=== PATIENT | male | born 1955 | race Caucasian/White ===

== ENCOUNTER 2020-02-17 11:05 | Outpatient (CLI) | payer MEDICARE, OTHER, SELFPAY ==
--- NOTE | ~2020-02-17 | US_ITS ---
EXAMINATION: US retroperitoneal comp DATE: 02/17/2020 11:44 INDICATION: Gross hematuria TECHNIQUE: Multiple grayscale and Doppler ultrasound images of the kidneys were obtained. COMPARISON: None. FINDINGS: The right kidney measures 11.0 x 5.0 x 6.9 cm. The left kidney measures 13.2 x 5.9 x 5.3 cm . There is a 3.8 cm mass of the left mid kidney. The kidneys demonstrate normal parenchymal echogenic ity. There is no hydronephrosis. The bladder is normal. IMPRESSION: 1. Left kidney mass concerning for renal cell carcinoma. Further evaluation by CT or MRI without and with contrast is recommended. Reviewed, dictated and finalized at location B.
[2020-02-17 11:24] LABS: Basophils Absolute Auto 0.02 K/mm3 (0.00-0.10); Basophils Percent Auto 0.3 % (0.0-1.0); Eosinophils Percent Auto 1.3 % (1.0-6.0); Hematocrit 34.5 % (37.0-46.0); Hemoglobin 12.2 g/dL (12.4-15.3); Immature Granulocyte Absolute 0.05 K/mm3 (0.00-0.00); Immature Granulocyte Percent A 0.6 % (0.0-0.0); Lymphocytes Absolute Auto 1.44 K/mm3 (1.10-4.50); Lymphocytes Percent Auto 18.5 % (18.0-42.0); Mean Corpuscular HGB Conc 35.4 g/dL (32.0-36.0); Mean Corpuscular Hemoglobin 31.6 pg (27.0-31.0); Mean Corpuscular Volume 89.4 fL (78.0-102.0); Mean Platelet Volume 8.4 fl (8.7-11.0); Monocytes Absolute Auto 0.82 K/mm3 (0.10-0.90); Monocytes Percent Auto 10.5 % (2.0-11.0); Neutrophils Absolute Auto 5.4 K/mm3 (1.7-7.2); Neutrophils Percent Auto 68.8 % (50.0-70.0); Platelet Count Result 262 K/mm3 (150-420); Red Blood Count 3.86 M/mm3 (4.70-6.10); Red Cell Distribution Width 12.6 % (11.6-14.4); White Blood Count 7.8 K/mm3 (4.8-10.8)
[2020-02-17 11:37] LABS: Partial Thromboplastin Time 30.1 SEC (22.3-31.6)
[2020-02-17 11:39] LABS: Alanine Aminotransferase 25 U/L (16-63); Alkaline Phosphatase 49 U/L (46-116); Aspartate Amino Transferase 23 U/L (15-37); Bilirubin,Total 0.5 mg/dL (0.00-1.00); Blood Urea Nitrogen 10 mg/dL (7-18); Calcium 8.5 mg/dL (8.5-10.1); Carbon Dioxide 27 mmol/L (21-32); Estimated Glomerular Filt Rate > 60; Glucose 99 mg/dL (70-99); Total Protein 7.1 g/dL (6.4-8.2)
[2020-02-17 11:49] LABS: Anion Gap 12.3 mmol/L (7-16); Chloride 83 mmol/L (98-108); Osmolality Calculated 245 mOsm/kg (285-295); Potassium 4.3 mmol/L (3.5-5.1)
[2020-02-17 11:55] LABS: Sodium 118 mmol/L (136-145)
[2020-02-17 12:06] LABS: Add Urine Microscopic? YES; Appearance Urine Turbid (Clear); Bilirubin Urine 1+ (Negative); Blood Urine 3+ (Negative); Color Urine Red (Yellow); Glucose Urine UA Trace (Negative); Ketones Urine 1+ (Negative); Leukocyte Esterase Ur 2+ (Negative); Nitrate Urine Positive (Negative); Protein Urine 3+ (Negative); pH Urine 7.5 (5.0-8.0)
[2020-02-17 12:11] LABS: RBC Urine >75 /hpf (0-2)
[2020-02-17 12:12] LABS: Bacteria Urine Trace /hpf
[2020-02-17 12:21] LABS: Creatinine Urine 38.88 mg/dL (40-278)
[2020-02-17 14:45] LABS: MALB Creatinine Ratio 1027.4 mg/g (0-30)
[2020-02-17 14:46] LABS: Microalbumin Urine Random > 400.0 mg/L; Total Protein Urine Random > 250.0 mg/dL (0.0-11.9)
[2020-02-17 18:25] LABS: Ethanol < 3 mg/dL (0-6)
== END 2020-02-17 11:06 | disposition home or self-care (01) ==
PROVIDERS: PCP Family Medicine; Visit Provider Family Medicine
DX: R31.0 Gross hematuria (principal); I10 Essential (primary) hypertension; E87.1 Hypo-osmolality and hyponatremia; F10.20 Alcohol dependence, uncomplicated
CPT/HCPCS: 36415; 76770; 80053; 80307; 81001; 81050; 82043; 84156; 85025; 85610; 85730; 87086; 88112

== ENCOUNTER 2020-02-18 08:25 | Outpatient (CLI) | payer MEDICARE, SELFPAY ==
[2020-02-18 08:47] LABS: Blood Urea Nitrogen 10 mg/dL (7-18); Calcium 8.7 mg/dL (8.5-10.1); Carbon Dioxide 26 mmol/L (21-32); Estimated Glomerular Filt Rate 60; Glucose 99 mg/dL (70-99)
[2020-02-18 08:52] LABS: Chloride 78 mmol/L (98-108); Osmolality Calculated 237 mOsm/kg (285-295)
[2020-02-18 08:54] LABS: Sodium 114 mmol/L (136-145)
== END 2020-02-18 08:26 | disposition home or self-care (01) ==
LOC: CHSLAB 08:26
PROVIDERS: PCP Family Medicine; Visit Provider Family Medicine
DX: E87.1 Hypo-osmolality and hyponatremia (principal)
CPT/HCPCS: 36415; 80048

== ENCOUNTER 2020-02-18 11:09 | Inpatient (IN) | payer MEDICARE, OTHER, SELFPAY ==
--- NOTE | ~2020-02-18 | CT_ITS ---
EXAMINATION: CT abdomen pelvis wo/w con DATE: 02/18/2020 13:39 INDICATION: Left kidney mass on ultrasound TECHNIQUE: Computed tomography (CT) of the abdomen was performed without intravenous contrast. CT of the abdomen and pelvis was then performed with a total of 100 mL Omnipaque 350 intravenous contrast. The dose-length product (DLP) was 986.43 mGy-cm. Automated exposure control and iterative reconstruct ion technique were employed. COMPARISON: None FINDINGS: Minimal dependent atelectasis is present in the lung bases. The heart size is normal. A sma ll sliding hiatal hernia is noted. The liver, gallbladder, adrenal glands are normal. Scattered calci fications throughout the pancreas pancreatitis. There is a 6 mm nonobstructing stone of the right kid loren lower pole. There is an approximately 4.3 x 3.1 cm enhancing mass of the left mid kidney. The jorge al vein appears normal. There is irregular crescentic thickening of the left bladder wall which invol ves the left ureterovesicular junction causes moderate left hydroureteronephrosis. There is calcified atherosclerosis of the aorta and many of the other arteries. No pathologically enlarged abdominal or pelvic lymph nodes are identified. There is no free intraperitoneal gas or evidence of bowel obstruc tion. The appendix is normal. IMPRESSION: 1. 4.3 cm left kidney mass consistent with renal cell carcinoma. 2. Asymmetric wall thickening of the bladder which causes moderate left hydroureteronephrosis possibl y reflect urothelial carcinoma. Urologic consultation is recommended. 3. Findings consistent with chronic pancreatitis. Reviewed, dictated and finalized at location B. IMPRESSION: 1. 4.3 cm left kidney mass consistent with renal cell carcinoma. 2. Asymmetric wall thickening of the bladder which causes moderate left hydrour eteronephrosis possibly reflect urothelial carcinoma. Urologic consultation is recommended. 3. Findings consistent with chronic pancreatitis.
--- NOTE | ~2020-02-18 | XR_ITS ---
EXAMINATION: XR chest 2V DATE: 02/18/2020 13:45 INDICATION: Cough and renal mass TECHNIQUE: Frontal and lateral views of the chest are obtained COMPARISON: None available FINDINGS: There is mild atelectasis of the right lower lobe. There is no pleural effusion or pneumoth orax. The cardiomediastinal silhouette is normal. Changes of anterior fusion procedure are noted in t he cervical spine. There is mild thoracic spondylosis. IMPRESSION: 1. Mild atelectasis of the right lower lobe. Reviewed, dictated and finalized at location B.
--- NOTE | 2020-02-18 11:15 | ADMGEN ---
This patient, Andre Sanchez, was admitted to Medical Room 342-01. Patient/family oriented to hospital policies and general routines including ID bracelet, bed and alarms, visiting hours, pain management, procedures, bathroom and other care routines, personal items, smoking policy, room service/diet, and visiting hours. Valuables list has been completed. Information on how to activate the Rapid Response Team has been discussed. Patient/Family are encouraged to report perceived risks to care and to ask questions if they do not understand what they are told or what they should do.
[2020-02-18 11:38] LABS: Basophils Percent Auto 0.1 % (0.2-1.2); Hematocrit 33.5 % (42.0-52.0); Immature Granulocyte Absolute 0.03 K/mm3 (0.00-0.031); Immature Granulocyte Percent A 0.4 % (0-0.5); Lymphocytes Absolute Auto 0.81 K/mm3 (0.9-3.2); Lymphocytes Percent Auto 11.1 % (18.3-44.2); Mean Corpuscular HGB Conc 35.8 g/dl (32-36); Mean Corpuscular Hemoglobin 31.1 pg (26-34); Mean Corpuscular Volume 86.8 fl (80-100); Mean Platelet Volume 8.7 fl (7.4-10.4); Monocytes Absolute Auto 0.6 K/mm3 (0.1-0.6); Monocytes Percent Auto 8.8 % (2.6-8.5); Neutrophils Absolute Auto 5.8 K/mm3 (1.3-6.7); Neutrophils Percent Auto 79.6 % (45.5-73.1); Platelet Count Result 272 k/mm3 (150-375); Red Blood Count 3.86 M/mm3 (4.6-6.20); Red Cell Distribution Width 12.2 % (11.5-14.5); White Blood Count 7.3 K/mm3 (4.5-10.0)
[2020-02-18 11:57] LABS: Alanine Aminotransferase 19 U/L (4-50); Albumin Level 4.5 g/dL (3.5-5.1); Alkaline Phosphatase 56 U/L (38-126); Aspartate Amino Transferase 35 U/L (17-59); Bilirubin,Total 0.5 mg/dL (0.2-1.3); Blood Urea Nitrogen 11 mg/dL (9-20); Calcium 8.6 mg/dL (8.4-10.2); Carbon Dioxide 23 mmol/L (22-30); Chloride 77 mmol/L (98-107); Estimated Glomerular Filt Rate > 60; Glucose 94 mg/dL (75-110); Potassium 4.2 mmol/L (3.4-5.0); Sodium 113 mmol/L (137-145)
[2020-02-18 12:22] LABS: Thyroid Stimulating Hormone 0.936 uIU/mL (0.465-4.680)
[2020-02-18 12:23] VITALS: BMI 25.7
[2020-02-18 12:50] LABS: Sodium Urine Random 52 meq/L
[2020-02-18] MEDS: SODIUM CHLORIDE 0.9% IV 1,000 ML 100 ML IV CONT ×2 (13:00→22:11)
[2020-02-18 13:02] LABS: Add Urine Microscopic? YES; Appearance Urine Clear (Clear); Bacteria Urine Trace /hpf; Bilirubin Urine Negative (Negative); Blood Urine 3+ (Negative); Color Urine Yellow (Yellow); Glucose Urine UA Negative (Negative); Ketones Urine 1+ mg/dL (Negative); Leukocyte Esterase Ur Negative LEU/UL (NEGATIVE); Nitrate Urine Negative (Negative); Protein Urine 1+ mg/dL (Negative); RBC Urine >75 /hpf (0-2); Specific Grav Ur 1.012 (1.001-1.035); Urobilinogen Urine Negative mg/dL (<2.0)
[2020-02-18 14:00] VITALS: BP 199/73; PULSE 96; RESP 20; TEMP 36.7; O2SAT 96
--- NOTE | 2020-02-18 15:05 | PM.IMHP ---
H&P: HPI History of Present Illness Chief complaint: Hyponatremia Narrative: Date of visit 02/17 1130. Andre Sanchez is a 64 year old hypertensive white male with COPD who Saturday evening started having bright red blood with clots in his urine. He had no dysuria but little difficulty with urination do the clotting. He started forcing copious amounts of water and solids primary care on the . He had no fever chills at that time his sodium was 118. Renal sonogram was ordered and when he returned today for follow-up his sodium had dipped 114 and the sonogram revealed a 3.8 cm lesion left kidney thought to be probable renal cell carcinoma. With the hyponatremia and lesion is admitted for evaluation the same. As stated had been drinking copious amounts of water and does take a thiazide diuretic. Review of Systems Review of Systems: Narrative: Constitutional his weight has been stable, to increase with good appetite no fever no chills Eye no double vision or scotoma Mouth no pharyngitis laryngitis Pulmonary no increased shortness breath wheezing or cough chronic from a COPD and continues to smoke CV no chest pain or palpitation GI no melena or hematochezia, did have some loose stools today. No history of peptic disease as per present illness but no dysuria or hematuria PSA within last year was normal Muscle skeletal no particular joint discomfort other than neck from previous surgery after injury some 2-3 years ago Psych no depression PMFSH Past Medical History Medical History (Updated 02/18/20 @ 15:11 by Kevin Martinez MD) COPD (chronic obstructive pulmonary disease) HTN (hypertension) Surgical History Surgical History (Updated 02/18/20 @ 15:02 by Kevin Martinez MD) S/P cervical spinal fusion Family History Family History (Updated 02/18/20 @ 11:59 by Samantha Abdalla RN) Mother Breast cancer Father Cerebrovascular accident Sibling Esophageal cancer Lung cancer Social History Social History Smoking packs per day: 1.5 Smoking cigarettes per day: 30.0 Years smoked: 40 Smoking pack-years: 60.00 Smoking status: Current some day smoker Tobacco type: cigarettes Second hand tobacco smoke exposure: Yes Alcohol intake: current Drinks per week: 5 Substance use: current Substance use type: marijuana Last use: twice a week marijuana Spiritual care concerns: No Agree to blood products: Yes Meds Home Medications and Allergies Home Medications Medication Instructions Recorded Confirmed Type albuterol sulfate See Rx Instructions .ROUTE .COMPLEX 02/18/20 02/18/20 History ciprofloxacin HCl [Cipro] 250 mg PO BID 02/18/20 02/18/20 History hydrochlorothiazide 25 mg PO DAILY 02/18/20 02/18/20 History lisinopril 40 mg PO DAILY 02/18/20 02/18/20 History triamcinolone acetonide [Triderm] See Rx Instructions .ROUTE .COMPLEX 02/18/20 02/18/20 History Allergies Allergy/AdvReac Type Severity Reaction Status Date / Time No Known Allergies Allergy Verified 02/18/20 13:15 Exam Narrative: Exam Narrative: Blood pressure is 100/70 pulse 72 afebrile Neck supple no adenopathy thyromegaly carotid bruits Pupils equal reactive to light sclera anicteric Mouth dentures which were not removed to because the appears normal Lungs low but prolonged expiratory phase no wheezing or consolidation CV regular rate rhythm no murmurs Abdomen is soft nontender no masses Extremities without edema dorsalis pedis posterior tibial 1 to 2+ Neurological José alert oriented cranial nerves are intact no focal deficits Psych affect appears appropriate very cooperative H&P: Results Labs Labs: Short CBC 02/18/20 Range/Units 11:28 WBC 7.3 (4.5-10.0) K/mm3 Hgb 12.0 L (14.0-18.0) g/dL Hct 33.5 L (42.0-52.0) % Plt Count 272 (150-375) k/mm3 BMP 02/18/20 11:28 Sodium 113 L* Potassium 4.2 Chloride 77 L Carbon Dioxide 23 BUN 11 Creatinine 1.00 Glucose 94 Calcium 8
[2020-02-18 16:00] VITALS: BP 147/63; PULSE 106; RESP 20; TEMP 37.7; O2SAT 97
[2020-02-18] MEDS: TRIAMCINOLONE ACET 0.1% CREAM 15 GM TUBE 1 APPLIC TOPICAL (16:40)
--- NOTE | 2020-02-18 16:51 | WPDURCON ---
Assessment and Plan Assessment and plan (1) Left renal mass: Code(s): N28.89 - Other specified disorders of kidney and ureter Status: Acute Assessment and Plan: Gentleman with a significant smoking history admitted with gross hematuria and hyponatremia. CT scan of the abdomen and pelvis with without contrast revealed a centrally located 4.5 cm heterogeneous enhancing mass in the left kidney. Additionally he has left hydroureteronephrosis to the ureterovesical junction with thickening of his bladder wall. 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 Certainly, he appears to have some type of a neoplasm involving the left. When he is medically fit we will evaluate further with cystoscopy, left ureteroscopy and biopsy. This can be done as an outpatient if he is ready for discharge over the weekend. I had a very nafisa discussion with the patient about the findings on CT and expected course of action, involving likely either left nephrectomy or nephroureterectomy. Urology Consult Note HPI Date Seen: 02/18/20 Requesting Physician: Kevin Martinez MD Primary Care Provider: Ry Ansari MD Consult Narrative Narrative: Andre Sanchez is a 64 year old male without prior significant urological history into 3-4 nights ago. At that time he developed gross painless hematuria that has since been sporadic. This is not been associated with significant abdominal or flank pain, nausea vomiting or irritable voiding. In response to the hematuria and drink a lot and has since been transferred from [facility] and admitted here for management of hyponatremia. During the course of her evaluation here renal ultrasound for showed a possible mass in his left kidney and this has since been confirmed by CT scan of the abdomen and pelvis. Review of Systems Constitutional: Constitutional: Denies chills, Denies fatigue, Denies fever(s) and Denies headache(s) Eyes: Eyes: Denies blurry vision ENT: Denies vertigo, Denies dizziness, Denies headache(s) and Denies sore throat Cardiovascular: Cardiovascular: Denies chest pain, Denies syncope, Denies lightheadedness, Denies palpitations, Denies dyspnea and Denies dyspnea on exertion Respiratory: Respiratory: Denies hemoptysis, Denies dyspnea and Denies dyspnea on exertion Gastrointestinal: Gastrointestinal: Denies melena, Denies bloating, Denies hematochezia, Denies change in bowel habits, Denies change in stool character, Denies constipation, Denies diarrhea and Denies vomiting Genitourinary: Genitourinary: Denies dysuria, Denies testicular pain, Denies urinary frequency, Denies urinary hesitancy and Denies urinary urgency Integumentary/Breasts: Skin/Breast: Denies pruritus, Denies lesions and Denies rash Neurologic: Denies confusion, Denies vertigo, Denies dizziness, Denies syncope and Denies headache(s) Psychiatric: Psychiatric: Denies anxiety, Denies change in appetite and Denies confusion Endocrine: Endocrine: Denies fatigue and Denies palpitations PMFSH Past Medical History Medical History COPD (chronic obstructive pulmonary disease) HTN (hypertension) Surgical History Surgical History S/P cervical spinal fusion Family History Family History Mother Breast cancer Father Cerebrovascular accident Sibling Esophageal cancer Lung cancer Social History Social History Smoking packs per day: 1.5 Smoking cigarettes per day: 30.0 Years smoked: 40 Smoking pack-years: 60.00 Smoking status: Current some day smoker Tobacco type: cigarettes Second hand tobacco smoke exposure: Yes Alcohol intake: current Drinks per week: 5 Substance use: current Subst
[2020-02-18 22:00] VITALS: BP 131/53; PULSE 82; PULSE 87; RESP 16; TEMP 37.1; O2SAT 96
[2020-02-19 05:44] VITALS: BP 136/62; PULSE 87; RESP 14; TEMP 37.2; O2SAT 99
[2020-02-19 05:50] LABS: Blood Urea Nitrogen 12 mg/dL (9-20); Calcium 8.2 mg/dL (8.4-10.2); Carbon Dioxide 26 mmol/L (22-30); Chloride 86 mmol/L (98-107); Estimated CRCL calculation 72 ml/min; Estimated Glomerular Filt Rate > 60; Glucose 96 mg/dL (75-110); Potassium 3.5 mmol/L (3.4-5.0); Sodium 119 mmol/L (137-145)
[2020-02-19 06:08] LABS: Iron 74 ug/dL (49-181)
[2020-02-19 06:17] LABS: Percent Iron Saturation 22 % (20-50)
--- NOTE | 2020-02-19 07:41 | WPDUROPN2 ---
Progress Note: A&P Assessment and Plan (1) Left renal mass: Code(s): N28.89 - Other specified disorders of kidney and ureter Status: Acute Assessment and Plan: Gentleman with a significant smoking history admitted with gross hematuria and hyponatremia. CT scan of the abdomen and pelvis with without contrast revealed a centrally located 4.5 cm heterogeneous enhancing mass in the left kidney. Additionally he has left hydroureteronephrosis to the ureterovesical junction with thickening of his bladder wall. 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 Certainly, he appears to have some type of a neoplasm involving the left. When he is medically fit we will evaluate further with cystoscopy, left ureteroscopy and biopsy. This can be done as an outpatient if he is ready for discharge over the weekend. I had a very nafisa discussion with the patient about the findings on CT and expected course of action, involving likely either left nephrectomy or nephroureterectomy. 02/19/2020 Pt. can be discharged any time, from our standpoint. We will contact to schedule outpatient left ureteroscopy with biopsy. Pt. fully aware of problems and plan - another long discussion this morning. Subjective Subjective Date/Time Seen: 02/19/20 07:41 Comfortable, no complaintes Review of Systems Cardiovascular: Cardiovascular: Denies chest pain, Denies lightheadedness, Denies palpitations and Denies dyspnea Respiratory: Respiratory: Denies dyspnea Gastrointestinal: Gastrointestinal: Denies diarrhea, Denies nausea and Denies vomiting Genitourinary: Genitourinary: Denies hematuria and Denies dysuria Endocrine: Endocrine: Denies palpitations Exam Const: General: no acute distress Resp: Effort & Inspection: normal respiratory effort GI: Inspection: non-distended GI Palp: No abdominal tenderness and No Guarding due to palpation present (GI) Auscultation: normal bowel sounds Objective Data Vital Signs Vital Signs: Vital Signs - 24 hr 02/18/20 14:00 02/18/20 16:00 02/18/20 22:00 Temperature 98.1 F 99.9 F H 98.7 F Pulse Rate 96 106 H 82 Respiratory Rate 20 20 16 Blood Pressure 199/73 H 147/63 H 131/53 L Pulse Oximetry 96 97 96 02/19/20 05:44 Temperature 99.0 F Pulse Rate 87 Respiratory Rate 14 Blood Pressure 136/62 Pulse Oximetry 99 Intake/Output Intake/Output: Intake & Output 02/16/20 02/17/20 02/18/20 02/19/20 23:59 23:59 23:59 23:59 Intake Total 1450 100 Output Total 350 Balance 1450 -250 Meds/Results Medications: Active Medications Generic Name Dose Route Start Last Admin Trade Name Freq PRN Reason Stop Dose Admin Acetaminophen 650 mg 02/18/20 14:58 Tylenol Tablet PO Q6H PRN Mild Pain (1-3) or Fever Albuterol 2 puff 02/18/20 15:41 Proventil Hfa INHALATION Q4HR PRN Shortness Of Breath Sodium Chloride 1,000 mls @ 100 mls/hr 02/18/20 11:10 02/18/20 22:11 Normal Saline Iv IV CONT 100 mls/hr .Q10H CHRISTINE Administration Lisinopril 40 mg 02/19/20 09:00 Prinivil PO QAM CHRISTINE Tiotropium [place] 1 cap 02/18/20 16:05 Spiriva INHALATION QAM CHRISTINE Triamcinolone Acetonide 1 applic 02/18/20 15:55 02/18/20 16:40 Kenalog 0.1% Cream TOPICAL 1 applic DAILY CHRISTINE Administration Radiology Results: ITS Impressions Abdomen/Pelvis CT 02/18/20 13:42 IMPRESSION: 1. 4.3 cm left kidney mass consistent with renal cell carcinoma. 2. Asymmetric wall thickening of the bladder which causes moderate left hydroureteronephrosis possibly reflect urothelial carcinoma. Urologic consultation is recommended. 3. Findings consistent with chronic pancreatitis. Chest X-Ray 02/18/20 14:00 IMPRESSION: 1. Mild atelectasis of the right lower lobe. Labs Labs: Laboratory Results - last 24 hr 02/18/20 02/18/20 02/18/20 11:28 11:28 11:28 WB
[2020-02-19] MEDS: SODIUM CHLORIDE 0.9% IV 1,000 ML 100 ML IV CONT ×2 (08:36→18:29)
[2020-02-19] MEDS: TRIAMCINOLONE ACET 0.1% CREAM 15 GM TUBE 1 APPLIC TOPICAL (08:37)
[2020-02-19] MEDS: POTASSIUM CHLORIDE 20 MEQ TABLET 40 MEQ PO (08:37)
[2020-02-19 08:38] VITALS: RESP 14; O2SAT 99
[2020-02-19] MEDS: lisinopriL 20 MG TABLET 40 MG PO (08:38)
[2020-02-19 14:00] VITALS: BP 140/60; PULSE 68; RESP 14; TEMP 37.1; O2SAT 94
--- NOTE | 2020-02-19 15:00 | PM.IMPN ---
Progress Note: A&P Assessment and Plan (1) Hyponatremia: Code(s): E87.1 - Hypo-osmolality and hyponatremia Status: Acute Assessment and Plan: Probably combination of excess free water and thiazide diuretic good especially with the low chloride and low serum osmolality. Loose stools before admission could be contributing also. Hydrating with saline and holding diuretic and sodium is slowly rising as we prefer at 119. (2) Left renal mass: Code(s): N28.89 - Other specified disorders of kidney and ureter Status: Acute Assessment and Plan: Left renal mass probable renal cell carcinoma on CT scan.. 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 Urology has seen and will plan on cystoscopy at a later date with biopsy and probable definitive nephrectomy later (3) HTN (hypertension): Code(s): I10 - Essential (primary) hypertension Status: Acute Assessment and Plan: Pressure is toward low side initially but has rebounded slightly and have continued GINI-inhibitor continue to hold diuretic with low sodium (4) COPD (chronic obstructive pulmonary disease): Code(s): J44.9 - Chronic obstructive pulmonary disease, unspecified Status: Acute Assessment and Plan: P.r.n. albuterol. And Spiriva (5) DVT prophylaxis: Code(s): Z29.9 - Encounter for prophylactic measures, unspecified Status: Acute Assessment and Plan: With hematuria and renal lesion will use mechanical DVT prophylaxis Subjective Date/time seen: 02/19/20 15:00 Interval history: Date of visit 02/18.. 64-year-old hyper intensive white male admitted with severe hyponatremia with hematuria and a renal mass on sonogram from the outpatient. Feeling better today less lightheadedness and appetite good. 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 Urology has seen and will schedule cystoscopy with biopsy and probable nephrectomy and later date Exam Narrative: Exam Narrative: Blood pressure is 136/62 pulse 70 afebrile Neck supple no adenopathy thyromegaly carotid bruits Pupils equal reactive to light sclera anicteric Lungs clear but prolonged expiratory phase no wheezing or consolidation CV regular rate rhythm no murmurs Abdomen is soft nontender no masses Extremities without edema dorsalis pedis posterior tibial 1 to 2+ Neurological alert oriented cranial nerves are intact no focal deficits Psych affect appears appropriate very cooperative Objective Data Vital Signs Vital Signs: Vital Signs - 24 hr 02/18/20 16:00 02/18/20 22:00 02/19/20 05:44 Temperature 37.7 C H 37.1 C 37.2 C Pulse Rate 106 H 82 87 Respiratory Rate 20 16 14 Blood Pressure 147/63 H 131/53 L 136/62 Pulse Oximetry 97 96 99 02/19/20 08:38 Temperature Pulse Rate Respiratory Rate 14 Blood Pressure Pulse Oximetry 99 Intake/Output Intake/Output: Intake & Output 02/16/20 02/17/20 02/18/20 02/19/20 23:59 23:59 23:59 23:59 Intake Total 1450 2380 Output Total 350 Balance 1450 2030 Meds/Results Medications: Active Medications Generic Name Dose Route Start Last Admin Trade Name Freq PRN Reason Stop Dose Admin Acetaminophen 650 mg 02/18/20 14:58 Tylenol Tablet PO Q6H PRN Mild Pain (1-3) or Fever Albuterol 2 puff 02/18/20 15:41 Proventil Hfa INHALATION Q4HR PRN Shortness Of Breath Sodium Chloride 1,000 mls @ 100 mls/hr 02/18/20 11:10 02/19/20 08:36 Normal Saline Iv IV CONT 100 mls/hr .Q10H CHRISTINE Administration Lisinopril 40 mg 02/19/20 09:00 02/19/20 08:38 Prinivil PO 40 mg QAM CHRISTINE Administration Tiotropium [place] 1 cap 02/18/20 16:05 02/19/20 08:36 Spiriva INHALATION 1 cap QAM CHRISTINE Administration Triamcinolone Acetonide 1 applic 02/18/20 15:55 02/19/20 08:37 Kenalog 0.1% Cream TOPICAL 1 applic DAILY CHRISTINE Administration Radiology Results: ITS Impressions
[2020-02-19 20:32] VITALS: BP 147/54; PULSE 98; RESP 18; TEMP 36.4; O2SAT 99
[2020-02-20 03:32] LABS: Osmolality, Urine 306 mOsm/kg (50-1200)
[2020-02-20] MEDS: SODIUM CHLORIDE 0.9% IV 1,000 ML 100 ML IV CONT (04:37)
[2020-02-20 04:40] VITALS: BP 141/61; PULSE 76; RESP 18; TEMP 36.4; O2SAT 95
[2020-02-20 06:15] LABS: Blood Urea Nitrogen 9 mg/dL (9-20); Calcium 8.5 mg/dL (8.4-10.2); Carbon Dioxide 27 mmol/L (22-30); Chloride 94 mmol/L (98-107); Estimated CRCL calculation 91 ml/min; Estimated Glomerular Filt Rate > 60; Glucose 107 mg/dL (75-110); Sodium 127 mmol/L (137-145)
[2020-02-20] MEDS: ACETAMINOPHEN 325 MG TABLET 650 MG PO (07:01)
[2020-02-20] MEDS: lisinopriL 20 MG TABLET 40 MG PO (08:24)
[2020-02-20] MEDS: TRIAMCINOLONE ACET 0.1% CREAM 15 GM TUBE 1 APPLIC TOPICAL (08:24)
[2020-02-20 13:34] LABS: Blood Urea Nitrogen 11 mg/dL (9-20); Calcium 7.9 mg/dL (8.4-10.2); Carbon Dioxide 27 mmol/L (22-30); Chloride 91 mmol/L (98-107); Estimated CRCL calculation 80 ml/min; Estimated Glomerular Filt Rate > 60; Glucose 107 mg/dL (75-110); Potassium 3.9 mmol/L (3.4-5.0); Sodium 126 mmol/L (137-145)
[2020-02-20 14:00] VITALS: BP 137/81; PULSE 72; RESP 18; TEMP 36.8; O2SAT 97
--- NOTE | 2020-02-20 15:13 | PM.IMPN ---
Progress Note: A&P Assessment and Plan (1) Hyponatremia: Code(s): E87.1 - Hypo-osmolality and hyponatremia Status: Acute Assessment and Plan: combination of excess free water and thiazide diuretic especially with the low chloride and low serum osmolality. Loose stools before admission could be contributing also. Hydrating with saline and holding diuretic and sodium up to 127 today , a rise of 8 in 24 hours acceptable will stop IV saline and watch 1 more day . (2) Left renal mass: Code(s): N28.89 - Other specified disorders of kidney and ureter Status: Acute Assessment and Plan: Left renal mass probable renal cell carcinoma on CT scan.. 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 Urology has seen and will plan on cystoscopy at a later date with biopsy and probable definitive nephrectomy later (3) HTN (hypertension): Code(s): I10 - Essential (primary) hypertension Status: Acute Assessment and Plan: Pressure is toward low side initially but has rebounded slightly and have continued GINI-inhibitor continue to hold diuretic with low sodium (4) COPD (chronic obstructive pulmonary disease): Code(s): J44.9 - Chronic obstructive pulmonary disease, unspecified Status: Acute Assessment and Plan: P.r.n. albuterol. with scheduled Spiriva (5) DVT prophylaxis: Code(s): Z29.9 - Encounter for prophylactic measures, unspecified Status: Acute Assessment and Plan: With hematuria and renal lesion will use mechanical DVT prophylaxis Subjective Date/time seen: 02/20/20 15:13 Interval history: Date of visit 02/19.. 64-year-old hypertensive white male admitted with severe hyponatremia with hematuria and a renal mass on sonogram from the outpatient. Feeling better each day less lightheadedness and appetite good. 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 Urology has seen and will schedule cystoscopy with biopsy and probable nephrectomy and later date Exam Narrative: Exam Narrative: Blood pressure is 136/80 pulse 72 afebrile Neck supple no adenopathy thyromegaly carotid bruits Pupils equal reactive to light sclera anicteric Lungs clear but prolonged expiratory phase no wheezing or consolidation CV regular rate rhythm no murmurs Abdomen is soft nontender no masses Extremities without edema dorsalis pedis posterior tibial 1 to 2+ Neurological alert oriented cranial nerves are intact no focal deficits Objective Data Vital Signs Vital Signs: Vital Signs - 24 hr 02/19/20 20:32 02/20/20 04:40 02/20/20 14:00 Temperature 36.4 C 36.4 C L 36.8 C Pulse Rate 98 76 72 Respiratory Rate 18 18 18 Blood Pressure 147/54 H 141/61 H 137/81 Pulse Oximetry 99 95 97 Intake/Output Intake/Output: Intake & Output 02/17/20 02/18/20 02/19/20 02/20/20 23:59 23:59 23:59 23:59 Intake Total 1450 6380 2280 Output Total 2350 Balance 1450 4030 2280 Meds/Results Medications: Active Medications Generic Name Dose Route Start Last Admin Trade Name Freq PRN Reason Stop Dose Admin Acetaminophen 650 mg 02/18/20 14:58 02/20/20 07:01 Tylenol Tablet PO 650 mg Q6H PRN Administration Mild Pain (1-3) or Fever Albuterol 2 puff 02/18/20 15:41 Proventil Hfa INHALATION Q4HR PRN Shortness Of Breath Lisinopril 40 mg 02/19/20 09:00 02/20/20 08:24 Prinivil PO 40 mg QAM CHRISTINE Administration Tiotropium [place] 1 cap 02/18/20 16:05 02/20/20 08:56 Spiriva INHALATION 1 cap QAM CHRISTINE Administration Triamcinolone Acetonide 1 applic 02/18/20 15:55 02/20/20 08:24 Kenalog 0.1% Cream TOPICAL 1 applic DAILY CHRISTINE Administration Radiology Results: ITS Impressions Abdomen/Pelvis CT 02/18/20 13:42 IMPRESSION: 1. 4.3 cm left kidney mass consistent with renal cell carcinoma. 2. Asymmetric wall thickening of the bladder which causes moderate left hydroureteron
[2020-02-20 21:23] VITALS: BP 163/69; PULSE 86; RESP 16; TEMP 36.9; O2SAT 96
[2020-02-21 06:00] VITALS: BP 162/67; PULSE 75; RESP 18; TEMP 36.5; O2SAT 99
[2020-02-21 06:49] LABS: Blood Urea Nitrogen 10 mg/dL (9-20); Calcium 8.6 mg/dL (8.4-10.2); Carbon Dioxide 28 mmol/L (22-30); Chloride 95 mmol/L (98-107); Estimated CRCL calculation 104 ml/min; Estimated Glomerular Filt Rate > 60; Glucose 114 mg/dL (75-110); Potassium 3.9 mmol/L (3.4-5.0); Sodium 126 mmol/L (137-145)
[2020-02-21] MEDS: TRIAMCINOLONE ACET 0.1% CREAM 15 GM TUBE 1 APPLIC TOPICAL (08:32)
[2020-02-21] MEDS: lisinopriL 20 MG TABLET 40 MG PO (08:32)
--- NOTE | 2020-02-21 17:50 | PM.DS ---
DS: Diagnosis Admitting Diagnosis Admitting Diagnosis: Hypo-osmolality and hyponatremia Discharge Diagnosis (1) Hyponatremia: Code(s): E87.1 - Hypo-osmolality and hyponatremia Status: Acute Assessment and Plan: combination of excess free water and thiazide diuretic especially with the low chloride and low serum osmolality. Loose stools before admission could be contributing also. 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 Urology has seen and will plan on cystoscopy at a later date with biopsy and probable definitive nephrectomy later They will contact patient after d/c (3) HTN (hypertension): Code(s): I10 - Essential (primary) hypertension Status: Acute Assessment and Plan: Pressure is toward low side initially but has rebounded quickly and have continued GINI-inhibitor, continue to hold diuretic with low sodium and will follow up with primary this week to restart HTCZ or add different antihypertensive if needed (4) COPD (chronic obstructive pulmonary disease): Code(s): J44.9 - Chronic obstructive pulmonary disease, unspecified Status: Acute Assessment and Plan: P.r.n. albuterol. with scheduled Spiriva DS: Summary Hospital Course Hospital Course: 64-year-old hypertensive white male admitted with hematuria and significant hyponatremia. Sodium jose with saline infusion and holding his thiazide diuretic. Etiology probably multifactorial but he had been forcing copious amounts of free water at home. 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 Was seen by Urology and will have follow-up cystoscope with biopsy and probable definitive nephrectomy Time Spent with Patient Time attestation: Total time spent providing and/or coordinating discharge services:35 Exam Narrative: Exam Narrative: Condition on discharge Blood 152/68 pulse is 74 Lungs clear CV regular rate rhythm Abdomen soft Extremities without edema DS: Data Data Completed and Pending Labs on day of discharge: Labs from last 24 hours 02/21/20 05:42 Sodium 126 L Potassium 3.9 Chloride 95 L Carbon Dioxide 28 BUN 10 Creatinine 0.60 L Estim Creat Clear Calc 104 Estimated GFR > 60 Glucose 114 H Calcium 8.6 Discharge Plan Discharge Attending physician on discharge: Kevin Martinez Consulting providers: Esteban Herrmann Discharging Clinician: Kevin Martinez Patient Disposition: Home, Self-Care Activity: as tolerated Diet: low sodium Discharge Instructions: up to 7 eight oz glasses of fluid per day Patient Instructions: Antibiotic Form, Pain Management (GEN) Stand Alone Forms: General Discharge Information Follow-up/Referrals: Esteban Herrmann MD [Physician] - Call for Appointment Ry Ansari MD [Primary Care Provider] - 02/24/20 Discharge Medications: Continued triamcinolone acetonide [Triderm] 0.1 % cream See Rx Instructions .ROUTE .COMPLEX RF: 0 albuterol sulfate 90 mcg/actuation HFA aerosol inhaler See Rx Instructions .ROUTE .COMPLEX RF: 0 lisinopril 40 mg tablet 40 mg PO DAILY RF: 0 Discontinued ciprofloxacin HCl [Cipro] 250 mg tablet 250 mg PO BID RF: 0 hydrochlorothiazide 25 mg tablet 25 mg PO DAILY RF: 0 Other Ambulatory Orders: Basic Metabolic Panel (Routine) Timeframe: 20200223 Location: Determined by Patient Ordered By: Kevin Martinez Date of admission: 02/18/20 10:59 Primary Care Provider: Ry Ansari Admitting Provider: Artem
== END 2020-02-21 11:15 | disposition home or self-care (01) | DRG 641 ==
PROVIDERS: Admitting Provider Internal Medicine; PCP Family Medicine; Visit Provider Internal Medicine
DX: E87.1 Hypo-osmolality and hyponatremia (principal); T50.2X5A Adverse effect of carbonic-anhydrase inhibitors, benzothiadiazides and other diuretics, initial encounter; R63.8 Other symptoms and signs concerning food and fluid intake; N28.89 Other specified disorders of kidney and ureter; I10 Essential (primary) hypertension; R31.0 Gross hematuria; F17.210 Nicotine dependence, cigarettes, uncomplicated; J44.9 Chronic obstructive pulmonary disease, unspecified; Z98.1 Arthrodesis status; Z79.899 Other long term (current) drug therapy
CPT/HCPCS: 36415; 71046; 74178; 80048; 80053; 81001; 82728; 83540; 83550; 83930; 83935; 84300; 84443; 85025; 87086; 94640; A9270; J7030; Q9967

== ENCOUNTER 2020-02-29 11:31 | Outpatient (CLI) | payer MEDICARE, OTHER, SELFPAY ==
--- NOTE | 2020-02-29 13:00 | EST_ITS ---
Patient Info Name: Andre Sanchez Age: 64 years : 1955 Gender: Male Ht: 67 in Wt: 177 lbs BSA: 1.97 m2 Exam Date: 02/29/2020 12:57 PM Exam Location: [facility] Patient Status: Outpatient Admit Date: 02/29/2020 Staff Ordering Physician: Ry Ansari MD Attending Provider: Ry Ansari MD Exam Type: CA stress kathe w NM Summary 1. 1. Negative Lexiscan stress test for ischemic ST changes by ECG criteria. 2. 2. Baseline hypertension. 3. 3. Nuclear scan to follow and will be reported separately. Please correlate with it. 4. 4. Patient informed of the above results. Protocol: LEXISCAN Stress ECG Details Stage: REST Duration (min): 2 min : 1 sec HR (bpm): 87 SBP (mmHg): 189 DBP (mmHg): 83 Stage: REST Duration (min): 7 min : 3 sec HR (bpm): 87 SBP (mmHg): 189 DBP (mmHg): 83 Stage: STAGE 1 Duration (min): 0 min : 5 sec HR (bpm): 87 SBP (mmHg): 189 DBP (mmHg): 83 Stage: RECOVERY Duration (min): 0 min : 54 sec HR (bpm): 104 SBP (mmHg): 189 DBP (mmHg): 83 Stage: RECOVERY Duration (min): 1 min : 54 sec HR (bpm): 106 SBP (mmHg): 185 DBP (mmHg): 83 Stage: RECOVERY Duration (min): 2 min : 54 sec HR (bpm): 100 SBP (mmHg): 182 DBP (mmHg): 81 Stage: RECOVERY Duration (min): 3 min : 54 sec HR (bpm): 98 SBP (mmHg): 177 DBP (mmHg): 82 Stage: RECOVERY Duration (min): 4 min : 54 sec HR (bpm): 98 SBP (mmHg): 182 DBP (mmHg): 86 Stage: RECOVERY Duration (min): 5 min : 54 sec HR (bpm): 96 SBP (mmHg): 191 DBP (mmHg): 85 Stage: RECOVERY Duration (min): 6 min : 2 sec HR (bpm): 97 SBP (mmHg): 191 DBP (mmHg): 85 Rest HR: 87 bpm Peak HR: 106 bpm Rest Sys BP: 189 mmHg Peak Sys BP: 191 mmHg Max Pred HR: 155 bpm % Max Pred HR: 68 % Target HR: 132 bpm Max RPP: 20,246 bpm*mmHg Termination Reason: Completed protocol Cardiac Symptoms: Shortness of breath Total Time: 0 min : 5 sec Rest Allred BP: 83 mmHg Peak Allred BP: 85 mmHg Total Dose: 0.4 mg Resting ECG Sinus rhythm. Stress ECG No ST changes. Arrhythmias None. Report Signatures
== END 2020-02-29 11:32 | disposition home or self-care (01) ==
LOC: CHSIMG 11:34
PROVIDERS: PCP Family Medicine; Visit Provider Family Medicine
DX: R94.31 Abnormal electrocardiogram [ECG] [EKG] (principal)
CPT/HCPCS: 78452; 93017; A9502; J2785

== ENCOUNTER 2020-03-10 00:28 | Day surgery (SDC) | payer MEDICARE, OTHER, SELFPAY ==
--- NOTE | 2020-02-23 09:14 | P.HP_ITS ---
History of Present Illness History of Present Illness Consent: Risks, benefits, and alternatives have been discussed and questions answered. Patient agrees to proceed with procedure. Chief complaint: bladder tumor Narrative: Andre Sanchez is a 64 year old male without prior urological history admitted recently with gross hematuria (among other things). CT- abd/pelvis shows probable neoplasm in left kidney and bladder with left hydronephrosis. Review of Systems Cardiovascular: Cardiovascular: Denies chest pain, Denies lightheadedness, Denies palpitations and Denies dyspnea Respiratory: Respiratory: Denies dyspnea Gastrointestinal: Gastrointestinal: Denies diarrhea, Denies nausea and Denies vomiting Genitourinary: Genitourinary: Reports hematuria, Denies dysuria and Denies flank pain Endocrine: Endocrine: Denies palpitations PMF Social History Social History Smoking packs per day: 1.5 Smoking cigarettes per day: 30.0 Years smoked: 40 Smoking pack-years: 60.00 Smoking status: Current some day smoker Tobacco type: cigarettes Second hand tobacco smoke exposure: Yes Alcohol intake: current Drinks per week: 5 Substance use: current Substance use type: marijuana Last use: twice a week marijuana Spiritual care concerns: No Agree to blood products: Yes Meds Home Medications and Allergies Home Medications Medication Instructions Recorded Confirmed Type albuterol sulfate See Rx Instructions .ROUTE .COMPLEX 02/18/20 02/18/20 History lisinopril 40 mg PO DAILY 02/18/20 02/18/20 History triamcinolone acetonide [Triderm] See Rx Instructions .ROUTE .COMPLEX 02/18/20 02/18/20 History Allergies Allergy/AdvReac Type Severity Reaction Status Date / Time No Known Allergies Allergy Verified 02/18/20 13:15 Exam Const: General: no acute distress Resp: Effort & Inspection: normal respiratory effort GI: Inspection: non-distended GI Palp: No abdominal tenderness and No Guarding due to palpation present (GI) Auscultation: normal bowel sounds Assessment and Plan Assessment and plan (1) Left renal mass: Code(s): N28.89 - Other specified disorders of kidney and ureter Status: Acute (2) Gross hematuria: Code(s): R31.0 - Gross hematuria Status: Acute Assessment and Plan: * Cystoscopy, left urteroscopy, possible TURBT.
[2020-02-23 10:18] VITALS: BMI 26.0
[2020-03-07 12:31] VITALS: BMI 26.0
[2020-03-10] VITALS (8 sets, daily range): BP systolic 150–195; BP diastolic 69–91; PULSE 70–88; RESP 14–20; TEMP 36.4–36.7; O2SAT 98–100
--- NOTE | ~2020-03-10 | XR_ITS ---
EXAMINATION: XR retrograde pyelogram LT DATE: 03/10/2020 12:20 INDICATION: Left kidney mass. TECHNIQUE: 32 intraoperative fluoroscopic views of the abdomen and pelvis were obtained. I was not pr esent. Fluoroscopy exposure time was 38 seconds. COMPARISON: CT abdomen and pelvis 02/18/2020 FINDINGS: The left-sided retrograde pyelogram demonstrates a mass in mid zone of left kidney. There i s mild left hydronephrosis. IMPRESSION: 1. 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 Reviewed, dictated and finalized at location A.
--- NOTE | 2020-03-10 07:19 | WPDHPUPDATE1 ---
History and Physical Update Update Date/Time: 03/10/20 07:19 History and Physical has been reviewed, including an updated exam of the patient. There are NO changes in the patient's condition. Risks, benefits, and alternatives have been discussed and questions answered. Patient agrees to proceed with procedure.
[2020-03-10] MEDS: LACTATED RINGERS 1,000 ML 30 ML IV CONT (10:35)
--- NOTE | 2020-03-10 10:35 | WPDANESEPPF ---
Anes - Initial Pre Proc Eval Procedure: Operation Date: 03/10/20 12:00 Proposed Procedures p Cystoscopy, Left Ureteroscopy with Biopsy - Esteban Herrmann MD s Possible Trans Urethral Resection Bladder Tumor - Esteban Herrmann MD Date/Time: 03/10/20 10:35 Surgeon: Esteban Herrmann MD Pre Op Diagnosis: bladder tumor Patient Data Age: 64 Gender: M Height: 5 ft 9 in Weight: 80 kg Last Vital Signs Temp 36.7 C 03/10/20 09:58 Pulse 88 03/10/20 09:58 Resp 20 03/10/20 09:58 BP 192/82 H 03/10/20 09:58 Pulse Ox 99 03/10/20 09:58 Allergies Allergy/AdvReac Type Severity Reaction Status Date / Time No Known Allergies Allergy Verified 03/10/20 10:24 Home Medications Medication Instructions Recorded Confirmed Type albuterol sulfate See Rx Instructions .ROUTE .COMPLEX 02/18/20 03/10/20 History triamcinolone acetonide [Triderm] See Rx Instructions .ROUTE .COMPLEX 02/18/20 03/10/20 History atorvastatin 20 mg PO HS 03/07/20 03/10/20 History diltiazem HCl 120 mg PO DAILY 03/07/20 03/10/20 History tiotropium-olodaterol [Stiolto 2 puff INHALATION DAILY 03/07/20 03/10/20 History Respimat] Patient hx anesthesia problems: none Family hx anesthesia problems: none PMFSH Past Medical History Medical History COPD (chronic obstructive pulmonary disease) HTN (hypertension) Surgical History Surgical History S/P cervical spinal fusion Family History Family History Mother Breast cancer Father Cerebrovascular accident Sibling Esophageal cancer Lung cancer Social History Social History Smoking packs per day: 1.5 Smoking cigarettes per day: 30.0 Years smoked: 40 Smoking pack-years: 60.00 Smoking status: Current some day smoker Tobacco type: cigarettes Second hand tobacco smoke exposure: Yes Alcohol intake: current Drinks per week: 5 Substance use: current Substance use type: marijuana Last use: twice a week marijuana Gender identity (if verbalized by the patient): Male Spiritual care concerns: No Agree to blood products: Yes Anes - Eval Final PreProcedure Day of Procedure 03/10/20 10:35 Patient weight: overweight Heart: regular rate and rhythm Lungs: clear to auscultation Airway: Mallampati scale class II Neurological: alert and oriented Last oral intake: >/= 8 hours ASA classification: III Emergent: no Anesthetic plan: proceed Anesthesia type and monitoring: general LMA and standard monitoring Informed Consent: The patient's anesthetic plan and its attendant risks and benefits were discussed with the patient/family/POA. Questions were solicited and answers provided to the satisfaction of the patient/family/POA.
[2020-03-10 10:49] LABS: Sodium 135 mmol/L (137-145)
[2020-03-10] MEDS: ceFAZolin 2 GM/D5W 50 ML 2 GM/50 ML BAG IVPB (11:51)
[2020-03-10] MEDS: LIDOCAINE HCL 2% GEL UROJET 10 ML PKG MUCOUS MEM (11:59)
--- NOTE | 2020-03-10 12:18 | PM.PROC ---
Procedure Note - Detailed Date of procedure: 03/10/20 Pre-op diagnosis: bladder tumor Post-op diagnosis: same Procedure performed: 1. Cystoscopy, left retrograde pyelography. 2. Left ureteroscopy Description of procedure: The patient was brought to the operative suite where he is prepped and draped in a routine sterile fashion while in the dorsal lithotomy position after the uneventful induction of a general LMA anesthetic. A 19F rigid cystoscope was placed in the bladder. There are no urethral strictures. His prostatic urethra measures, approximately, 1.0cm with a small median lobe enlargement. The bladder mucosa was endoscopically normal without hyperemia or neoplasm. The reported thickening of bladder wall on recentl CT scan likely was due to incomplete filling. Urine is collected for cytology. There was a single, orthotopic ureteral orifice bilaterally. A 0.035 glidewire was advanced into the left/ renal pelvis under fluoroscopy. The distal ureter was dilated with an 8F/10F ureteral dilator. Ureteroscopy was undertaken with a digital, flexible ureteroscope. Careful inspection of the entire left collecting system and ureter was undertaken without any evidence neoplasm, foreign body, mucosal hyperemia or other identifiable abnormalities. I did perform a left retrograde pyelogram via the ureteral scope to ensure that we were inspecting all calices. On this retrograde pyelogram there was no evidence of filling defects. In light of these findings I feel comfortable that the left renal mass recently seen on CT scan represents a parenchymal, renal cell carcinoma. The patient's bladder was emptied and he was taken to the recovery room having tolerated this procedure well. Implants: None Anesthesia: GLMA Surgeon: Esteban Herrmann MD Estimated blood loss (mL): 0 Drains: No Packing: No Pathology: none sent Complications: No immediate complications Condition: stable Disposition: PACU
== END 2020-03-10 14:30 | disposition home or self-care (01) ==
PROVIDERS: PCP Family Medicine; Visit Provider Urology
PROC: (CPT 52352; principal; 2020-03-10 12:00)
DX: N28.89 Other specified disorders of kidney and ureter (principal); R31.0 Gross hematuria; N13.30 Unspecified hydronephrosis; F17.210 Nicotine dependence, cigarettes, uncomplicated; I10 Essential (primary) hypertension; J44.9 Chronic obstructive pulmonary disease, unspecified; Z98.1 Arthrodesis status; F12.90 Cannabis use, unspecified, uncomplicated
CPT/HCPCS: 52351; 36415; 74420; 84295; 88108; A9270; C1769; J0690; J1100; J2405; J2704; J3010; J7120

== ENCOUNTER 2020-05-05 09:06 | Outpatient (CLI) | payer MEDICARE, OTHER, SELFPAY ==
--- NOTE | ~2020-05-05 | XR_ITS ---
EXAMINATION: XR chest 2V DATE: 05/05/2020 09:29 INDICATION: Hypertension. Preoperative evaluation prior to nephrectomy. TECHNIQUE: PA and lateral views of the chest were obtained. COMPARISON: Chest radiograph dated 02/18/2020 FINDINGS: Hyperexpansion of the lungs with mild flattening of the diaphragm. No focal airspace opacities, pulmo nary edema, pleural effusion or pneumothorax. The cardiomediastinal silhouette is normal. Lower cervi jethro anterior spinal fusion with interbody bone graft cages and anterior plate and screw fixation. IMPRESSION: 1. Unchanged hyperexpansion of the lungs suggestive but not diagnostic of COPD. No other acute cardio pulmonary disease. Reviewed, dictated and finalized at location A. IMPRESSION: 1. Unchanged hyperexpansion of the lungs suggestive but not diagnostic of COPD. No other acute cardiopulmonary disease.
[2020-05-05 09:31] LABS: Basophils Percent Auto 0.5 % (0.2-1.2); Eosinophils Absolute Auto 0.1 K/mm3 (0-0.3); Eosinophils Percent Auto 1.4 % (0-4.4); Hematocrit 38.5 % (42.0-52.0); Hemoglobin 13.4 g/dL (14.0-18.0); Immature Granulocyte Absolute 0.03 K/mm3 (0.00-0.031); Immature Granulocyte Percent A 0.4 % (0-0.5); Lymphocytes Absolute Auto 1.58 K/mm3 (0.9-3.2); Lymphocytes Percent Auto 20.4 % (18.3-44.2); Mean Corpuscular HGB Conc 34.8 g/dl (32-36); Mean Corpuscular Hemoglobin 31.6 pg (26-34); Mean Corpuscular Volume 90.8 fl (80-100); Mean Platelet Volume 9.1 fl (7.4-10.4); Monocytes Absolute Auto 0.7 K/mm3 (0.1-0.6); Monocytes Percent Auto 8.6 % (2.6-8.5); Neutrophils Absolute Auto 5.3 K/mm3 (1.3-6.7); Neutrophils Percent Auto 68.7 % (45.5-73.1); Platelet Count Result 272 k/mm3 (150-375); Red Blood Count 4.24 M/mm3 (4.6-6.20); Red Cell Distribution Width 14.4 % (11.5-14.5); White Blood Count 7.8 K/mm3 (4.5-10.0)
[2020-05-05 09:44] LABS: INR 0.9; Prothrombin Time 11.5 Seconds (11.1-14.7)
[2020-05-05 09:45] LABS: Partial Thromboplastin Time 29.6 SECONDS (22.3-36.8)
[2020-05-05 09:48] LABS: Alanine Aminotransferase 25 U/L (4-50); Albumin Level 4.7 g/dL (3.5-5.1); Alkaline Phosphatase 67 U/L (38-126); Aspartate Amino Transferase 33 U/L (17-59); Bilirubin,Total 0.3 mg/dL (0.2-1.3); Blood Urea Nitrogen 12 mg/dL (9-20); Calcium 9.2 mg/dL (8.4-10.2); Carbon Dioxide 25 mmol/L (22-30); Chloride 99 mmol/L (98-107); Estimated Glomerular Filt Rate > 60; Glucose 130 mg/dL (75-110); Potassium 4.2 mmol/L (3.4-5.0); Sodium 132 mmol/L (137-145)
== END 2020-05-05 09:07 | disposition home or self-care (01) ==
LOC: ANHSURGERY 09:09
PROVIDERS: PCP Family Medicine; Visit Provider Urology
DX: N28.89 Other specified disorders of kidney and ureter (principal); Z01.812 Encounter for preprocedural laboratory examination
CPT/HCPCS: 36415; 71046; 80053; 85025; 85610; 85730; 86850; 86900; 86901; 87086

== ENCOUNTER 2020-05-10 00:39 | Outpatient (CLI) | payer MEDICARE, OTHER, SELFPAY ==
[2020-05-10 18:12] LABS: SARS-CoV-2 RNA PCR Negative
== END 2020-05-10 00:40 | disposition home or self-care (01) ==
LOC: ANHCOVIDDT 00:40
PROVIDERS: PCP Family Medicine; Visit Provider Urology
DX: Z01.812 Encounter for preprocedural laboratory examination (principal); Z11.59 Encounter for screening for other viral diseases
CPT/HCPCS: 87635; C9803; U0003

== ENCOUNTER 2020-05-12 12:31 | Inpatient (IN) | payer MEDICARE, OTHER, SELFPAY ==
[2020-05-03 15:12] VITALS: BMI 25.9
--- NOTE | 2020-05-05 10:50 | PM.IMHP ---
H&P: HPI History of Present Illness Chief complaint: malignant neoplasm of kidney Narrative: Andre Sanchez is a 64 year old male who initially became familiar with in January 2021 he was transferred from [facility] with gross hematuria. At that time a renal ultrasound demonstrated left renal mass. By contrast CT that was consistent with a neoplasm. It centrally located near the left renal hilum. He did under go cystoscopy with ureteroscopy which showed no evidence of urothelial carcinoma. This likely represent renal cell carcinoma. There is no evidence of metastatic disease on CT scan. Initially he like to defer surgical intervention into the COVID-19 pandemic subsided somewhat. After discussion of therapeutic options he now presents for hand assisted laparoscopic left radical nephrectomy. He is aware of the risk of this procedure including, but not limited to, necessitating conversion to an open procedure, adverse cardiopulmonary events. Review of Systems Constitutional: Constitutional: Denies chills, Denies fatigue, Denies fever(s) and Denies headache(s) Eyes: Eyes: Denies blurry vision ENT: Denies vertigo, Denies dizziness, Denies headache(s) and Denies sore throat Cardiovascular: Cardiovascular: Denies chest pain, Denies syncope, Denies lightheadedness, Denies palpitations, Denies dyspnea and Denies dyspnea on exertion Respiratory: Respiratory: Denies hemoptysis, Denies dyspnea and Denies dyspnea on exertion Gastrointestinal: Gastrointestinal: Denies melena, Denies bloating, Denies hematochezia, Denies change in bowel habits, Denies change in stool character, Denies constipation, Denies diarrhea and Denies vomiting Genitourinary: Genitourinary: Denies hematuria, Denies dysuria, Denies testicular pain, Denies urinary frequency, Denies urinary hesitancy and Denies urinary urgency Integumentary/Breasts: Skin/Breast: Denies pruritus, Denies lesions and Denies rash Neurologic: Denies confusion, Denies vertigo, Denies dizziness, Denies syncope and Denies headache(s) Psychiatric: Psychiatric: Denies anxiety, Denies change in appetite and Denies confusion Endocrine: Endocrine: Denies fatigue and Denies palpitations PMFSH Past Medical History Medical History COPD (chronic obstructive pulmonary disease) HTN (hypertension) Surgical History Surgical History S/P cervical spinal fusion Family History Family History Mother Breast cancer Father Cerebrovascular accident Sibling Esophageal cancer Lung cancer Social History Social History Smoking packs per day: 1.5 Smoking cigarettes per day: 30.0 Years smoked: 40 Smoking pack-years: 60.00 Smoking status: Current some day smoker Tobacco type: cigarettes Second hand tobacco smoke exposure: Yes Alcohol intake: current Drinks per week: 5 Substance use: current Substance use type: marijuana Last use: twice a week marijuana Gender identity (if verbalized by the patient): Male Spiritual care concerns: No Agree to blood products: Yes Meds Home Medications and Allergies Home Medications Medication Instructions Recorded Confirmed Type albuterol sulfate See Rx Instructions .ROUTE .COMPLEX 02/18/20 05/03/20 History triamcinolone acetonide [Triderm] See Rx Instructions .ROUTE 02/18/20 05/03/20 History .COMPLEX PRN Stiolto Respimat 2 puff INHALATION DAILY 03/07/20 05/03/20 History atorvastatin 20 mg PO HS 03/07/20 05/03/20 History diltiazem HCl 120 mg PO DAILY 03/07/20 05/03/20 History lisinopril 30 mg PO DAILY 05/03/20 05/03/20 History Allergies Allergy/AdvReac Type Severity Reaction Status Date / Time No Known Allergies Allergy Verified 05/03/20 15:08 Exam Const: General: healthy appearing, c
[2020-05-12] VITALS (13 sets, daily range): BP systolic 128–178; BP diastolic 47–78; PULSE 73–98; RESP 12–20; TEMP 36.4–37.4; O2SAT 93–100
[2020-05-12] MEDS: LACTATED RINGERS 1,000 ML 30 ML IV CONT ×2 (06:40→10:45)
--- NOTE | 2020-05-12 06:48 | WPDANESEPPF ---
Anes - Initial Pre Proc Eval Procedure: Operation Date: 05/12/20 07:30 Proposed Procedures p Hand-Assisted Left Radical Nephrectomy - Esteban Herrmann MD Date/Time: 05/12/20 06:48 Surgeon: Esteban Herrmann MD Pre Op Diagnosis: malignant neoplasm of kidney Patient Data Age: 64 Gender: M Height: 1.75 m Weight: 77.3 kg Allergies Allergy/AdvReac Type Severity Reaction Status Date / Time No Known Allergies Allergy Verified 05/12/20 06:21 Home Medications Medication Instructions Recorded Confirmed Type albuterol sulfate See Rx Instructions .ROUTE .COMPLEX 02/18/20 05/12/20 History triamcinolone acetonide [Triderm] See Rx Instructions .ROUTE 02/18/20 05/12/20 History .COMPLEX PRN Stiolto Respimat 2 puff INHALATION DAILY 03/07/20 05/12/20 History atorvastatin 20 mg PO HS 03/07/20 05/12/20 History diltiazem HCl 120 mg PO DAILY 03/07/20 05/12/20 History lisinopril 30 mg PO DAILY 05/03/20 05/12/20 History Patient hx anesthesia problems: none Family hx anesthesia problems: none PMFSH Past Medical History Medical History (Updated 05/11/20 @ 12:52 by Fercho Anderson DO) COPD (chronic obstructive pulmonary disease) his asbestos exposure HTN (hypertension) Left renal mass Surgical History Surgical History (Updated 05/11/20 @ 12:52 by Fercho Anderson DO) History of appendectomy S/P cervical spinal fusion Family History Family History Mother Breast cancer Father Cerebrovascular accident Sibling Esophageal cancer Lung cancer Social History Social History Smoking packs per day: 1.5 Smoking cigarettes per day: 30.0 Years smoked: 40 Smoking pack-years: 60.00 Smoking status: Current some day smoker Tobacco type: cigarettes Second hand tobacco smoke exposure: Yes Alcohol intake: current Drinks per week: 5 Substance use: current Substance use type: marijuana Last use: twice a week marijuana Gender identity (if verbalized by the patient): Male Spiritual care concerns: No Agree to blood products: Yes Anes - Eval Final PreProcedure Day of Procedure 05/12/20 06:48 Patient weight: overweight Heart: regular rate and rhythm Lungs: clear to auscultation and normal air movement Airway: Mallampati scale class II and special considerations (neck fusion - ok for extension - for positioning: states if neck is turned to side for prolonged periods, can't move arms when he wakes up) Neurological: alert and oriented Last oral intake: >/= 8 hours ASA classification: III Emergent: no Anesthetic plan: proceed Anesthesia type and monitoring: general ETT and standard monitoring Informed Consent: The patient's anesthetic plan and its attendant risks and benefits were discussed with the patient/family/POA. Questions were solicited and answers provided to the satisfaction of the patient/family/POA.
--- NOTE | 2020-05-12 06:48 | WPDHPUPDATE1 ---
History and Physical Update Update Date/Time: 05/12/20 06:48 History and Physical has been reviewed, including an updated exam of the patient. There are NO changes in the patient's condition. Risks, benefits, and alternatives have been discussed and questions answered. Patient agrees to proceed with procedure.
--- NOTE | 2020-05-12 08:04 | SUR.PHASEII ---
Addendum entered by Anaya Bonilla RN 05/12/20 08:08: Entered wrong chart Original Note: 0750- Pharmacy delivered medication. Dr Herrmann placed chambers catheter and administered medication. No complications, Vitals stable
[2020-05-12] MEDS: ceFAZolin 2 GM/D5W 50 ML 2 GM/50 ML BAG IVPB (08:38)
--- NOTE | 2020-05-12 10:34 | PM.PROC ---
Procedure Note - Detailed Date of procedure: 05/12/20 Pre-op diagnosis: malignant neoplasm of kidney Post-op diagnosis: same Procedure performed: Hand-assisted, The patient is brought to the operative suite where he is placed in the right lateral position in anticipation of a left radical nephrectomy. An 8cm periumbilical incision made and dissection was carried into the peritoneal cavity with care taken to avoid injury to the peritoneal contents. A hand-port is placed at this site and insufflation is undertaken to 18cm Hg. Two 12mm trocars were then placed in the left midaxillary line, one 3-4cm below the costovertebral angle and another 3-4cm above the iliac crest. A 5mm trocar is placed in the left anterior axillary line and used to retract the left kidney. Using the harmonic scalpel the descending colon is mobilized medially by incising the white line of Toldt. The spleno-renal ligament is also dissected with the harmonic scalpel. The hilum is in dissected and the left renal vein and renal artery are identified. A single vascular hemaclip is placed on the left renal artery. The renal vein is in controlled and transected with a laparoscopic JOVANNY stapling device with a vascular load. 3 clips were then placed on the proximal and distal side of the renal artery and the artery was transected. The left adrenal vein is then transected with the laparoscopic JOVANNY stapling device. Using the Harmonic scalpel the fibro-fatty attachment to the kidney to the psoas and wonders lumbar muscles are freed. The ureter was identified, clipped with vascular clips and transected. The upper and lower pole of the kidney are then dissected with the harmonic scalpel. The specimen is submitted for permanent section. Inspection for hemostasis is undertaken at low insufflation pressures and appeared excellent. The descending colon was returned to an orthotopic position. The hand port and trocars were removed. The midline incision is closed with a running looped 0 PDS. The trocar sites were closed with 4-0 Vicryl subcuticular. Estimated blood loss was less than 50cc . The patient was taken to the recovery room having tolerated this procedure well. left radical nephrectomy Anesthesia: COLEMAN Surgeon: Esteban Herrmann MD Pie Filling Mixer: JASWINDER Deshpande Estimated blood loss (mL): 50 Drains: No Packing: No Pathology: yes Complications: No immediate complications Condition: stable Disposition: PACU
[2020-05-12] MEDS: HYDROMORPHONE HCL 1 MG/ML INJ 0.25 MG IV PUSH ×2 (11:55→12:00)
[2020-05-12] MEDS: DEXTROSE 5%/LACTATED RINGERS 1,000 ML 150 ML IV CONT ×2 (15:30→22:41)
[2020-05-12] MEDS: HYDROMORPHONE HCL 1 MG/ML INJ 0.5 MG IV PUSH ×2 (17:46→22:15)
[2020-05-12] MEDS: ATORVASTATIN 20 MG TABLET PO (20:41)
[2020-05-13] MEDS: HYDROMORPHONE HCL 1 MG/ML INJ 0.5 MG IV PUSH ×2 (02:13→06:16)
[2020-05-13 02:15] VITALS: BP 160/64; PULSE 94; RESP 20; TEMP 36.9; O2SAT 97
[2020-05-13] MEDS: DEXTROSE 5%/LACTATED RINGERS 1,000 ML 150 ML IV CONT ×3 (05:47→20:37)
[2020-05-13 06:15] VITALS: BP 160/81; PULSE 105; RESP 20; TEMP 37.2; O2SAT 94
[2020-05-13 06:23] LABS: Basophils Percent Auto 0.2 % (0.2-1.2); Hematocrit 35.7 % (42.0-52.0); Hemoglobin 12.2 g/dL (14.0-18.0); Immature Granulocyte Absolute 0.05 K/mm3 (0.00-0.031); Immature Granulocyte Percent A 0.4 % (0-0.5); Lymphocytes Absolute Auto 0.98 K/mm3 (0.9-3.2); Lymphocytes Percent Auto 8.6 % (18.3-44.2); Mean Corpuscular HGB Conc 34.2 g/dl (32-36); Mean Corpuscular Hemoglobin 31.8 pg (26-34); Mean Platelet Volume 9.4 fl (7.4-10.4); Monocytes Absolute Auto 0.9 K/mm3 (0.1-0.6); Monocytes Percent Auto 7.9 % (2.6-8.5); Neutrophils Absolute Auto 9.5 K/mm3 (1.3-6.7); Neutrophils Percent Auto 82.9 % (45.5-73.1); Platelet Count Result 248 k/mm3 (150-375); Red Blood Count 3.84 M/mm3 (4.6-6.20); Red Cell Distribution Width 14.2 % (11.5-14.5); White Blood Count 11.4 K/mm3 (4.5-10.0)
[2020-05-13 06:42] LABS: Potassium 3.8 mmol/L (3.4-5.0)
[2020-05-13 06:45] LABS: Blood Urea Nitrogen 11 mg/dL (9-20); Calcium 8.6 mg/dL (8.4-10.2); Carbon Dioxide 27 mmol/L (22-30); Chloride 92 mmol/L (98-107); Estimated CRCL calculation 51 ml/min; Estimated Glomerular Filt Rate 55; Glucose 154 mg/dL (75-110); Sodium 127 mmol/L (137-145)
[2020-05-13] MEDS: lisinopriL 10 MG TABLET 30 MG PO (08:34)
--- NOTE | 2020-05-13 08:57 | WPDUROPN2 ---
Progress Note: A&P Assessment and Plan (1) Left renal mass: Code(s): N28.89 - Other specified disorders of kidney and ureter Status: Acute Assessment and Plan: Doing well POD #1 JOY left nephrectomy. Increase diet and activity today. Likely home later today or tomorrow. Subjective Subjective Date/Time Seen: 05/13/20 08:57 POD #1 JOY left nephrectomy Mild abdominal pain / tolerating diet. Review of Systems Cardiovascular: Cardiovascular: Denies chest pain, Denies lightheadedness, Denies palpitations and Denies dyspnea Respiratory: Respiratory: Denies dyspnea Gastrointestinal: Gastrointestinal: Denies diarrhea, Denies nausea and Denies vomiting Genitourinary: Genitourinary: Denies hematuria and Denies dysuria Endocrine: Endocrine: Denies palpitations Exam Const: General: no acute distress Resp: Effort & Inspection: normal respiratory effort GI: Inspection: normal to inspection, non-distended and incision (clean and dry) GI Palp: No abdominal tenderness and No Guarding due to palpation present (GI) Auscultation: Hypoactive bowel sounds present Objective Data Vital Signs Vital Signs: Vital Signs - 24 hr 05/12/20 10:45 05/12/20 11:00 05/12/20 11:15 Temperature 97.6 F Pulse Rate 73 84 77 Respiratory Rate 14 20 14 Blood Pressure 132/51 L 151/67 H 158/60 H Pulse Oximetry 100 100 93 05/12/20 11:30 05/12/20 11:45 05/12/20 12:00 Temperature Pulse Rate 75 75 78 Respiratory Rate 17 12 12 Blood Pressure 149/47 H 155/68 H 166/72 H Pulse Oximetry 97 100 99 05/12/20 12:15 05/12/20 12:30 05/12/20 13:00 Temperature Pulse Rate 84 82 80 Respiratory Rate 18 16 16 Blood Pressure 170/78 H 147/78 H 135/68 Pulse Oximetry 96 94 95 05/12/20 14:00 05/12/20 18:15 05/12/20 22:15 Temperature 98.1 F 98.2 F 99.3 F Pulse Rate 78 76 98 Respiratory Rate 16 18 18 Blood Pressure 131/74 128/74 178/71 H Pulse Oximetry 95 96 96 05/13/20 02:15 05/13/20 06:15 Temperature 98.5 F 98.9 F Pulse Rate 94 105 H Respiratory Rate 20 20 Blood Pressure 160/64 H 160/81 H Pulse Oximetry 97 94 Intake/Output Intake/Output: Intake & Output 05/10/20 05/11/20 05/12/20 05/13/20 23:59 23:59 23:59 23:59 Intake Total 2160 1900 Output Total 270 1725 Balance 1890 175 Meds/Results Medications: Active Medications Generic Name Dose Route Start Last Admin Trade Name Freq PRN Reason Stop Dose Admin Hydrocodone Bitart/Acetaminophen 1 tab 05/13/20 05:00 05/13/20 08:38 [place] 5-325 Mg PO 1 tab Q4H PRN Administration Pain Rated 1-3 Hydrocodone Bitart/Acetaminophen 2 tab 05/13/20 05:00 [place] 5-325 Mg PO Q4H PRN Pain Rated 4-6 Albuterol 1 puff 05/12/20 12:30 Proventil Hfa INHALATION PRN PRN Shortness Of Breath Atorvastatin Calcium 20 mg 05/12/20 21:00 05/12/20 20:41 Lipitor PO 20 mg HS CHRISTINE Administration Diltiazem HCl 120 mg 05/13/20 09:00 05/13/20 08:34 Cardizem Cd PO 120 mg DAILY CHRISTINE Administration Hydromorphone HCl 0.5 mg 05/12/20 12:30 05/13/20 06:16 Dilaudid Inj IV PUSH 0.5 mg Q4H PRN Administration Pain Rated 7-10 Dextrose/Lactated Ringer's 1,000 mls @ 150 mls/hr 05/12/20 12:30 05/13/20 05:47 Dextrose 5%/Lactated Ringers IV CONT 150 mls/hr .Q6H40M CHRISTINE Administration Lisinopril 30 mg 05/13/20 09:00 05/13/20 08:34 Prinivil PO 30 mg DAILY CHRISTINE Administration Naloxone HCl 0.1 mg 05/12/20 12:30 Narcan IV PUSH Q2M PRN Opiate Reversal Non-Formulary Medication 2 puff 05/13/20 09:00 Tiotropium-Olodaterol [Stiolto Respimat] INHALATION 06/12/20 09:01 DAILY [facility] Labs Labs: Laboratory Results - last 24 hr 05/13/20 05/13/20 05:56 05:57 WBC 11.4 H RBC 3.84 L Hgb 12.2 L Hct 35.7 L MCV 93.0 MCH 31.8 MCHC 34.2 RDW 14.2 Plt Count 248 MPV 9.4 Immature Gran % (Auto) 0.4 Neut % (Auto) 82.9 H Lymph % (Auto) 8.6 L
--- NOTE | 2020-05-13 09:13 | WPDANESPN ---
Anes - Prog Note Post-Op Date/Time: 05/13/20 09:13 Cardiovascular status: normal Respiratory status: normal Airway patency: baseline Mental status: baseline Post-Op hydration status: normal Vital Signs: Last Vital Signs Temp 37.2 C 05/13/20 06:15 Pulse 105 H 05/13/20 06:15 Resp 20 05/13/20 06:15 BP 160/81 H 05/13/20 06:15 Pulse Ox 94 05/13/20 06:15 I/O: Intake & Output 05/12/20 05/13/20 05/13/20 23:59 07:59 15:59 Intake Total 1710 1900 Output Total 200 1725 Balance 1510 175 Laboratory Tests 05/13/20 05:57 05/13/20 05:56 05/13/20 05/13/20 05:56 05:57 WBC 11.4 H RBC 3.84 L Hgb 12.2 L Hct 35.7 L MCV 93.0 MCH 31.8 MCHC 34.2 RDW 14.2 Plt Count 248 MPV 9.4 Immature Gran % (Auto) 0.4 Neut % (Auto) 82.9 H Lymph % (Auto) 8.6 L Finney % (Auto) 7.9 Eos % (Auto) 0.0 Baso % (Auto) 0.2 Lymph # (Auto) 0.98 Finney # (Auto) 0.9 H Eos # (Auto) 0.0 Baso # (Auto) 0.0 Abs Immat Gran (auto) 0.05 H Absolute Neuts (auto) 9.5 H Absolute Nucleated RBC 0.0 Nucleated RBC % 0.0 Sodium 127 L Potassium 3.8 Chloride 92 L Carbon Dioxide 27 BUN 11 Creatinine 1.30 Estim Creat Clear Calc 51 Estimated GFR 55 L Glucose 154 H Calcium 8.6 Post-procedural complaints: none Patient Feedback: Patient satisfied with anesthetic care.
[2020-05-13 10:00] VITALS: BP 150/74; PULSE 88; RESP 16; TEMP 36.6; O2SAT 95
[2020-05-13 14:00] VITALS: BP 164/57; PULSE 91; RESP 18; TEMP 37.1; O2SAT 97
[2020-05-13] MEDS: ATORVASTATIN 20 MG TABLET PO (20:36)
[2020-05-13 22:00] VITALS: BP 157/58; PULSE 93; RESP 18; TEMP 37.1; O2SAT 95
[2020-05-14] MEDS: DEXTROSE 5%/LACTATED RINGERS 1,000 ML 150 ML IV CONT (04:07)
[2020-05-14 06:00] VITALS: BP 139/74; PULSE 100; RESP 18; TEMP 37.1; O2SAT 95
[2020-05-14 08:26] VITALS: BP 173/77; PULSE 90; RESP 16; O2SAT 98
[2020-05-14] MEDS: lisinopriL 10 MG TABLET 30 MG PO (08:28)
--- NOTE | 2020-05-19 11:17 | PM.DS ---
DS: Admitting Diagnosis Admitting Diagnosis Admitting Diagnosis: Encounter for observation for suspected exposure to other biological agents ruled out DS: Discharge Diagnosis Discharge Diagnosis (1) Left renal mass: Code(s): N28.89 - Other specified disorders of kidney and ureter Status: Acute DS: Summary Time Spent with Patient Time attestation: Total time spent providing and/or coordinating discharge services:15 this patient was admitted on the morning of his anticipated hand assisted laparoscopic left radical nephrectomy for a solid enhancing lesion in the medial aspect of his left kidney consistent with a renal cell carcinoma. On the morning underwent an uneventful radical nephrectomy. His postoperative course was uneventful. By the 1st postoperative evening he was tolerating liquids. Following day was advanced to a regular diet in started ambulating well. By the 2nd postoperative day was ambulating freely tolerating regular food. His postoperative creatinine in H&H were unremarkable. Exam Const: General: no acute distress Resp: Effort & Inspection: normal respiratory effort GI: Inspection: non-distended GI Palp: No abdominal tenderness and No Guarding due to palpation present (GI) Auscultation: normal bowel sounds DS: Data Data Completed and Pending Completed studies during hospitalization: Pending at discharge 05/12/20 10:20 Surgical [PTH] Routine Discharge Plan Discharge Attending physician on discharge: Esteban Herrmann Discharging Clinician: Esteban Herrmann Anticipated Discharge Date/Time: 05/14/20 11:00 Patient Disposition: Home, Self-Care Activity: no driving and other - see discharge instructions Diet: regular Discharge Instructions: 1) No lifting/straining >15lbs. x3 weeks. 2) No driving x1-week. 3) Resume normal, pre-operative diet. 4) Call office to arrange f/u in 1-2 weeks ([phone]). Patient Instructions: Antibiotic Form Stand Alone Forms: General Discharge Information Follow-up/Referrals: Esteban Herrmann MD [Physician] - Discharge Medications: New hydrocodone-acetaminophen 5-325 mg tablet 1 - 2 tablet PO Q6H PRN (Reason: pain) Qty: 30 RF: 0 Continued lisinopril 30 mg Tablet 30 mg PO DAILY RF: 0 triamcinolone acetonide [Triderm] 0.1 % cream See Rx Instructions .ROUTE .COMPLEX PRN (Reason: Skin Irritation) RF: 0 albuterol sulfate 90 mcg/actuation HFA aerosol inhaler See Rx Instructions .ROUTE .COMPLEX RF: 0 atorvastatin 20 mg Tablet 20 mg PO HS RF: 0 diltiazem HCl 120 mg Capsule,Extended Release 24hr 120 mg PO DAILY RF: 0 Stiolto Respimat 2.5-2.5 mcg/actuation Mist 2 puff INHALATION DAILY RF: 0 Date of admission: 05/12/20 12:31 Primary Care Provider: Ry Ansari Admitting Provider: Esteban Herrmann Discharge Date/Time: 05/14/20 11:00 Attending physician on admission: Esteban Herrmann
== END 2020-05-14 11:00 | disposition home or self-care (01) | DRG 658 ==
LOC: ANH3MEDSUR 14:13
PROVIDERS: Admitting Provider Urology; PCP Family Medicine; Visit Provider Urology
PROC: 0TT10ZZ Resection of Left Kidney, Open Approach (ICD-10-PCS; principal; 2020-05-12 07:30)
DX: C64.2 Malignant neoplasm of left kidney, except renal pelvis (principal); J44.9 Chronic obstructive pulmonary disease, unspecified; I10 Essential (primary) hypertension; F17.210 Nicotine dependence, cigarettes, uncomplicated; Z98.1 Arthrodesis status
CPT/HCPCS: 36415; 80048; 85025; 86900; 86901; 86920; 87635; 88307; A9270; C9803; J0690; J1100; J1170; J2250; J2405; J2704; J3010; J7120; J7121; U0003

== ENCOUNTER 2020-06-12 11:50 | Inpatient (IN) | payer MEDICARE, OTHER, SELFPAY ==
--- NOTE | ~2020-06-12 | CT_ITS ---
EXAMINATION: CT abdomen pelvis w con DATE: 06/12/2020 14:42 INDICATION: Abdominal wall cellulitis. Incisional hernia. TECHNIQUE: Computed tomography (CT) of the abdomen and pelvis was performed with 100 mL Omnipaque 350 intravenous contrast. Automated exposure control and iterative reconstruction technique were employe d. The dose-length product was 539.51 mGy-cm. COMPARISON: CT abdomen and pelvis 02/18/2020 FINDINGS: The visualized portions of the lung bases demonstrate mild atelectasis. No pleural effusion . The heart size is normal. No pericardial effusion. There are coronary artery calcifications. The li kwabena, gallbladder, spleen, and adrenal glands are normal. There are calcifications of the pancreas, co nsistent with chronic pancreatitis. There are cysts in right kidney measuring up to 8 mm. There are c hanges of left nephrectomy. The prostate is mildly enlarged. There is diverticulosis of the colon wit hout evidence of diverticulitis. The appendix is normal. There is a ventral hernia containing nonobst ructed small bowel. There are no pathologically enlarged lymph nodes. There is no free intraperitonea l fluid. There is severe lower lumbar spondylosis. IMPRESSION: 1. Ventral hernia containing nonobstructed small bowel. Reviewed, dictated and finalized at location A.
[2020-06-12 11:57] VITALS: BP 132/86; PULSE 88; RESP 19; TEMP 37; O2SAT 98
[2020-06-12 12:42] LABS: Basophils Percent Auto 0.6 % (0.2-1.2); Eosinophils Absolute Auto 0.1 K/mm3 (0-0.3); Eosinophils Percent Auto 1.8 % (0-4.4); Hematocrit 35.9 % (42.0-52.0); Hemoglobin 12.5 g/dL (14.0-18.0); Immature Granulocyte Absolute 0.04 K/mm3 (0.00-0.031); Immature Granulocyte Percent A 0.6 % (0-0.5); Lymphocytes Percent Auto 16.7 % (18.3-44.2); Mean Corpuscular HGB Conc 34.8 g/dl (32-36); Mean Corpuscular Volume 89.1 fl (80-100); Mean Platelet Volume 8.5 fl (7.4-10.4); Monocytes Absolute Auto 0.6 K/mm3 (0.1-0.6); Monocytes Percent Auto 8.9 % (2.6-8.5); Neutrophils Absolute Auto 5.2 K/mm3 (1.3-6.7); Neutrophils Percent Auto 71.4 % (45.5-73.1); Platelet Count Result 339 k/mm3 (150-375); Red Blood Count 4.03 M/mm3 (4.6-6.20); Red Cell Distribution Width 13.4 % (11.5-14.5); White Blood Count 7.2 K/mm3 (4.5-10.0)
[2020-06-12 12:54] LABS: Alanine Aminotransferase 17 U/L (4-50); Albumin Level 4.5 g/dL (3.5-5.1); Alkaline Phosphatase 86 U/L (38-126); Aspartate Amino Transferase 27 U/L (17-59); Bilirubin,Total 0.3 mg/dL (0.2-1.3); Blood Urea Nitrogen 17 mg/dL (9-20); Calcium 8.7 mg/dL (8.4-10.2); Carbon Dioxide 22 mmol/L (22-30); Chloride 89 mmol/L (98-107); Estimated CRCL calculation 42 ml/min; Estimated Glomerular Filt Rate 44; Glucose 91 mg/dL (75-110); Potassium 5.2 mmol/L (3.4-5.0); Sodium 123 mmol/L (137-145)
[2020-06-12 12:54] LABS: Lactic Acid Reflex 1.1 mmol/L (0.7-2.1)
[2020-06-12 13:10] LABS: Erythrocyte Sedimentation Rate 21 mm/hr (0-20)
[2020-06-12 13:29] LABS: CRP 1.9 mg/dL (<1.0)
--- NOTE | 2020-06-12 14:15 | ED.GENADULT ---
HPI - General Adult General Chief complaint: Recheck/Abnormal Lab/Rx Stated complaint: post op complications Time Seen by Provider: 06/12/20 13:16 Source: patient and family History of Present Illness HPI narrative: Patient is 64 years old white male status post kidney removal May [address] Niño. 1-1/2-week later patient developed incisional infection started on antibiotic, then started on another antibiotics 6 days ago, currently complaining of bulging abdominal wall with any kind of activity at the site of surgery. Patient denies pain, nausea, vomiting, fever, chills, urinary symptoms. Scheduled to see Dr. Connelly 3 days from now. Related Data Home Medications Medication Instructions Recorded Confirmed albuterol sulfate See Rx Instructions .ROUTE .COMPLEX 02/18/20 05/12/20 triamcinolone acetonide [Triderm] See Rx Instructions .ROUTE 02/18/20 05/12/20 .COMPLEX PRN Stiolto Respimat 2 puff INHALATION DAILY 03/07/20 05/12/20 atorvastatin 20 mg PO HS 03/07/20 05/12/20 diltiazem HCl 120 mg PO DAILY 03/07/20 05/12/20 lisinopril 30 mg PO DAILY 05/03/20 05/12/20 Allergies Allergy/AdvReac Type Severity Reaction Status Date / Time No Known Allergies Allergy Verified 06/12/20 12:57 Review of Systems Review of Systems: Narrative: CONSTITUTIONAL: Denies fever, chills, or sweats. EYES: Denies visual changes, redness, or discharge. ENT: Denies rhinorrhea, congestion, sore throat, or otalgia. CARDIOVASCULAR: Denies chest pain, palpitations, or edema. RESPIRATORY: Denies cough or dyspnea. GASTROINTESTINAL: Denies abdominal pain, nausea, vomiting, or diarrhea. GENITOURINARY: Denies dysuria or hematuria. SKIN: Denies rash or itching. MUSCULOSKELETAL: Denies back pain, joint pain, or myalgia. NEUROLOGIC: Denies headache, numbness, or weakness. PSYCHIATRIC: Denies anxiety or depression. [facility] Past Medical History Medical History COPD (chronic obstructive pulmonary disease) his asbestos exposure HTN (hypertension) Left renal mass Surgical History Surgical History History of appendectomy S/P cervical spinal fusion Family History Family History Mother Breast cancer Father Cerebrovascular accident Sibling Esophageal cancer Lung cancer Social History Social History Smoking packs per day: 1.5 Smoking cigarettes per day: 30.0 Years smoked: 40 Smoking pack-years: 60.00 Smoking status: Current some day smoker Tobacco type: cigarettes Second hand tobacco smoke exposure: Yes Alcohol intake: current Drinks per week: 14 Substance use: current Substance use type: marijuana Last use: twice a week marijuana Gender identity (if verbalized by the patient): Male Spiritual care concerns: No Agree to blood products: Yes Exam Narrative: Exam Narrative: General appearance: Well-developed, well-nourished Skin: Normal color Head: Normocephalic, nontraumatic Eyes: Clear conjunctiva ENT: Oropharynx normal, ears normal, nose normal Neck: Supple, nontender Chest and respiratory: Airway patent, no respiratory distress, no accessory muscle use Heart: Regular rate/rhythm Abdomen: Soft, nontender, no organomegaly, quiet bowel sounds, incisional hernia when patient trying to sit up from lying down position., Erythema, warmth at the incisional site, no discharge. Vascular: Normal peripheral pulses, normal capillary refill. Musculoskeletal: Normal range of motion, nontender back Neurologic: Alert and oriented ?3, AMF MECHANIC is normal as tested, no gross motor deficit
[2020-06-12] MEDS: MORPHINE SULFATE 4 MG/ML INJ IV PUSH (14:53)
[2020-06-12] MEDS: SODIUM CHLORIDE 0.9% IV 1,000 ML 999 ML IV CONT (14:53)
[2020-06-12] MEDS: ONDANSETRON INJ 4 MG/2 ML VIAL IV PUSH (14:53)
[2020-06-12 15:04] VITALS: BP 148/76; PULSE 89; O2SAT 98
--- NOTE | 2020-06-12 17:12 | ADMGEN ---
This patient, Andre Sanchez, was admitted to 2 Medical Room 244-. Patient/family oriented to hospital policies and general routines including ID bracelet, bed and alarms, visiting hours, pain management, procedures, bathroom and other care routines, personal items, smoking policy, room service/diet, and visiting hours. Valuables list has been completed. Information on how to activate the Rapid Response Team has been discussed. Patient/Family are encouraged to report perceived risks to care and to ask questions if they do not understand what they are told or what they should do.
[2020-06-12 17:28] VITALS: BMI 25.4
[2020-06-12] MEDS: SODIUM CHLORIDE 0.9% IV 1,000 ML 60 ML IV CONT (17:33)
--- NOTE | 2020-06-12 17:48 | PC.NURSE ---
Patients pharmacy is currently closed. Obtained home medications from discharge on 05/13/2020. Patient reports no changes from this current regimen.
[2020-06-12 20:00] VITALS: PULSE 89; RESP 19; O2SAT 98
[2020-06-12 22:00] VITALS: BP 131/49; PULSE 95; RESP 16; TEMP 36.5; O2SAT 94
--- NOTE | 2020-06-13 00:06 | PM.IMHP ---
H&P: HPI History of Present Illness Chief complaint: incisional hernia,hyponatremia,silvana Narrative: Andre Sanchez is a 64 year old male the patient came into the emergency room today due to postop complications. The patient had history of a left renal mass. The patient had a hand assisted laparoscopic left radical nephrectomy for a solid enhancing lesion. His postop H&H and creatinine were within normal limits according the records. The surgery was performed by Dr. Corrales. The patient stated that it was stage I renal carcinoma. No need for any chemo radiation. The surgery was performed on 05/12/2020 see operative report. 1 and half weeks later the patient developed an infection to that surgical site and was started on antibiotics. Patient stated that he was not get any better so he called the physician's office and received a 2nd 1 which she started about 6 days ago. There is still some mild redness around his umbilical area. Dr. espitia has been consulted. The patient cannot recall the antibiotic that he had been taking. Also the patient developed incisional hernia. Bumped to 1.6. The patient stated he did have any fever chills no nausea no vomiting no diarrhea. I am wondering if this could possibly just be from his antibiotics that he was taking. His sodium is 123 but is typically low anyway. He was started on IV fluids. And urology was consulted. Date of service is 06/12/2020 Review of Systems Review of Systems: All systems reviewed & are unremarkable except as noted in HPI and below Constitutional: Constitutional: Reports as per HPI and Reports no additional constitutional complaints Eyes: Eyes: Reports as per HPI and Reports no additional eye complaints ENT: Reports system reviewed and no additional complaints, except as documented and Reports Normal hearing present Cardiovascular: Cardiovascular: Reports no additional cardiovascular complaints Respiratory: Respiratory: Reports no additional respiratory complaints and Reports no additional respiratory complaints Gastrointestinal: Gastrointestinal: Reports as per HPI and Reports no additional gastrointestinal complaints Musculoskeletal: Musculoskeletal: Reports no additional musculoskeletal complaints Integumentary/Breasts: Skin/Breast: Reports system reviewed and no additional complaints, except as docu and Reports as per HPI Neurologic: Reports system reviewed and no additional complaints, except as documented, Reports as per HPI and Reports Normal hearing present Psychiatric: Psychiatric: Reports no additional psychiatric complaints and Reports as per HPI Endocrine: Endocrine: Reports no additional endocrine complaints Hematologic/Lymphatic: Hematologic/Lymphatic: Reports no additional hematologic/lymphatic complaints Allergic/Immunologic: Allergic/Immunologic: Reports no additional allergic/immunologic complaints [facility] Past Medical History Medical History (Updated 06/13/20 @ 00:12 by Cammie Ricketts NP) COPD (chronic obstructive pulmonary disease) his asbestos exposure HTN (hypertension) Hyperlipidemia Left renal mass Status post left nephrectomy Surgical History Surgical History (Updated 06/13/20 @ 00:12 by Cammie Ricketts NP) H/O left nephrectomy History of appendectomy S/P cervical spinal fusion Family History Family History Mother Breast cancer Father Cerebrovascular accident Sibling Esophageal cancer Lung cancer Social History Social History (Updated 06/13/20 @ 00:14 by Cammie Ricketts NP) Social History: The patient is and she has since . He has 1 daughter and she recently came to live with him and he has 1 granddaughter. He does not have a durable power social worker masters for healthcare but desires to be a full code. He drinks about 5 beers in a week he smokes marijuana maybe twice a week if that. He still continues to the smoke about a pack and half a cigare
[2020-06-13 00:58] LABS: Blood Urea Nitrogen 20 mg/dL (9-20); Calcium 8.5 mg/dL (8.4-10.2); Carbon Dioxide 26 mmol/L (22-30); Chloride 93 mmol/L (98-107); Estimated CRCL calculation 34 ml/min; Estimated Glomerular Filt Rate 34; Glucose 104 mg/dL (75-110); Sodium 125 mmol/L (137-145)
[2020-06-13 05:29] LABS: Blood Urea Nitrogen 20 mg/dL (9-20); Calcium 8.5 mg/dL (8.4-10.2); Carbon Dioxide 24 mmol/L (22-30); Chloride 96 mmol/L (98-107); Estimated CRCL calculation 35 ml/min; Estimated Glomerular Filt Rate 36; Glucose 100 mg/dL (75-110); Potassium 5.2 mmol/L (3.4-5.0); Sodium 127 mmol/L (137-145)
[2020-06-13 05:53] VITALS: BP 136/64; PULSE 101; RESP 16; TEMP 36.9; O2SAT 95
--- NOTE | 2020-06-13 06:49 | WPDURCON ---
Assessment and Plan Assessment and plan (1) Hyponatremia: Code(s): E87.1 - Hypo-osmolality and hyponatremia Status: Acute (2) Left renal mass: Code(s): N28.89 - Other specified disorders of kidney and ureter Status: Acute (3) Postoperative infection: Code(s): T81.40XA - Infection following a procedure, unspecified, initial encounter Status: Acute (4) Incisional hernia: Qualifiers: Obstruction and gangrene presence: without obstruction or gangrene Qualified Code(s): K43.2 - Incisional hernia without obstruction or gangrene Code(s): K43.2 - Incisional hernia without obstruction or gangrene Status: Acute Assessment and Plan: Midline incisional herniation and possible infection. Will consult general surgery for consideration of timing of hernia repair. Currently on Ancef for wound infection. Urology Consult Note HPI Date Seen: 06/13/20 Requesting Physician: Nettie Martin MD Primary Care Provider: Ry Ansari MD Consult Narrative Narrative: Andre Sanchez is a 64 year old male, who is 1-month s/p left hand-assisted left radical nephrectomy, who presents to the ER yesterday with a sudden, painless bulge in his midline incision. Reports this occurred without any identifiable precipitating exertional activity. Approximately 2 weeks ago he had had some hyperemia around the midline incision and was treated with cephalosporin for a possible wound infection. He denies nausea vomiting fevers chills. In the ER, in addition to the presence a midline incisional hernia, he was found to have recurrence of hyponatremia, prompting admission. Review of Systems Cardiovascular: Cardiovascular: Denies chest pain, Denies lightheadedness, Denies palpitations and Denies dyspnea Respiratory: Respiratory: Denies dyspnea Gastrointestinal: Gastrointestinal: Denies diarrhea, Denies nausea, Denies vomiting and Reports other Genitourinary: Genitourinary: Denies hematuria and Denies dysuria Endocrine: Endocrine: Denies palpitations PMF Past Medical History Medical History COPD (chronic obstructive pulmonary disease) his asbestos exposure HTN (hypertension) Hyperlipidemia Left renal mass Status post left nephrectomy Surgical History Surgical History H/O left nephrectomy History of appendectomy S/P cervical spinal fusion Family History Family History Mother Breast cancer Father Cerebrovascular accident Sibling Esophageal cancer Lung cancer Social History Social History Social History: The patient is and she has since . He has 1 daughter and she recently came to live with him and he has 1 granddaughter. He does not have a durable power research attorney for healthcare but desires to be a full code. He drinks about 5 beers in a week he smokes marijuana maybe twice a week if that. He still continues to the smoke about a pack and half a cigarettes a day for the last 40 years. Smoking packs per day: 1.5 Smoking cigarettes per day: 30.0 Years smoked: 45 Smoking pack-years: 67.50 Smoking status: Current every day smoker Tobacco type: cigarettes Second hand tobacco smoke exposure: Yes Alcohol intake: current Drinks per week: 12 Substance use: former Substance use type: marijuana Other substance usage details: Marijuana gummies occasional usage Gender identity (if verbalized by the patient): Male Spiritual care concerns: No Agree to blood products: Yes Meds Home Medications and Allergies Home Medications Medication Instructions Recorded Confirmed Type albuterol sulfate 1 puff INHALATION PRN PRN 02/18/20 06/12/20 History triamcinolone acetonide [Triderm] 0.1 % TOPICAL PRN
--- NOTE | 2020-06-13 10:07 | PM.CNGS ---
Assessment and Plan Assessment and plan (1) Incisional hernia: Qualifiers: Obstruction and gangrene presence: without obstruction or gangrene Qualified Code(s): K43.2 - Incisional hernia without obstruction or gangrene Code(s): K43.2 - Incisional hernia without obstruction or gangrene Status: Acute Assessment and Plan: CT scan reviewed and discussed with the patient in detail. He has evidence of an incisional hernia containing small bowel that does not appear to be obstructed on the CT. On exam, he has a soft, reducible hernia at the midline incision from his recent hand-assisted laparoscopic radical left nephrectomy. He is not having any obstructive symptoms and is currently tolerating a regular diet. He is only one month post-op from the left nephrectomy, and it would be ideal for him to be at least 6 weeks post-op prior to proceeding with a repair. Along with timeframe after surgery, it would be ideal for the wound infection to be cleared prior to surgery. This patient is also a heavy smoker and his risks with the hernia repair are increased due to this as well. Since he is not having any obstructive symptoms, and this is a stable, soft, reducible incisional hernia, we could potentially do the repair as an outpatient in a few weeks if he is progressing well. That being said, he would have the risk of incarceration, strangulation, or obstruction prior to surgery, which I discussed with the patient in detail. Would recommend avoiding any heavy lifting in the meantime to help avoid this. Will also start Miralax daily. The patient is agreeable to this plan and understands the importance of also working on smoking cessation while planning for surgery. Okay from a surgical standpoint to discharge the patient when medically stable and we can plan his surgery as an outpatient. Thank you for allowing us to see the patient in consultation. (2) Postoperative infection: Code(s): T81.40XA - Infection following a procedure, unspecified, initial encounter Status: Acute Assessment and Plan: Currently on IV Ancef. Continue antibiotics per Urology. It would be ideal for the wound infection to be completely resolved prior to proceeding with the hernia repair. Discussed this with the patient. (3) Tobacco abuse: Code(s): Z72.0 - Tobacco use Status: Acute Assessment and Plan: Discussed the importance of cessation and the increased risks associated with surgery due to smoking, including hernia recurrence, infection, and poor healing. If the hernia repair was done as an outpatient, then he would be able to hopefully work on cessation pre-operatively as encouraged. (4) Hyponatremia: Code(s): E87.1 - Hypo-osmolality and hyponatremia Status: Acute (5) Left renal mass: Code(s): N28.89 - Other specified disorders of kidney and ureter Status: Acute Assessment and Plan: Status post JOY left radical nephrectomy on 05/12/20 for renal cell carcinoma. Urology following. (6) COPD (chronic obstructive pulmonary disease): Code(s): J44.9 - Chronic obstructive pulmonary disease, unspecified Status: Chronic (7) HTN (hypertension): Code(s): I10 - Essential (primary) hypertension Status: Chronic (8) Hyperlipidemia: Code(s): E78.5 - Hyperlipidemia, unspecified Status: Chronic Additional Plan Discussed the patient's case and formulated plan of care with Dr. Mcgraw. History of Present Illness Consult details Consult date: 06/13/20 Reason for consult: other (Post-op incisional hernia following JOY left nephrectomy on 05/12/20) Requesting physician: Esteban Herrmann MD Narrative: This is a 64 year old male with a history renal cell carcinoma status post hand-assisted laparoscopic left radical nephrectomy on 05/12/2020. He also has a history of COPD, hypertension, hyperlipidemia, and tobacco abuse. The patient reports he has been doing well
[2020-06-13] MEDS: polyethylene glycoL 3350 17 GM POWD.PACK PO (10:29)
[2020-06-13] MEDS: SODIUM CHLORIDE 0.9% IV 1,000 ML 60 ML IV CONT (10:51)
[2020-06-13 13:30] VITALS: BP 128/63; PULSE 94; RESP 20; TEMP 36.4; O2SAT 95
[2020-06-13 14:02] LABS: Potassium 4.9 mmol/L (3.4-5.0)
--- NOTE | 2020-06-13 14:06 | PCCCNOTE ---
On 06/13/20, the student, Valeria Solo, provided care and completed [facility] documentation on this patient. I have reviewed the student's documentation and agree with the findings.
--- NOTE | 2020-06-13 14:51 | PM.IMPN ---
Progress Note: A&P Assessment and Plan (1) GEOVANY (acute kidney injury): Code(s): N17.9 - Acute kidney failure, unspecified Status: Acute Assessment and Plan: BUN:Cr ratio of 10 suggests an intrinsic etiology. He recently underwent left radical nephrectomy which may be the cause. He was also on recent antibiotics and his acute infection may be playing a role as well. He is on gentle IV fluids. Will check UA, urine sodium, and urine creatinine. CT abd/pelvis showed no evidence of obstruction. Lisinopril is on hold. Avoid nephrotoxins. Renally dose medications. Continue to monitor with repeat BMP tomorrow. (2) Postoperative infection: Code(s): T81.40XA - Infection following a procedure, unspecified, initial encounter Status: Acute Assessment and Plan: He is s/p left hand-assisted left radical nephrectomy 05/12/20. Dr. Herrmann is on board and recommendations are appreciated. Contiue IV cefazolin. The patient reports improvement today. Await further urology recommendations. (3) Hyponatremia: Code(s): E87.1 - Hypo-osmolality and hyponatremia Status: Acute Assessment and Plan: The patient has a hx of hyponatremia. His sodium levels improved after discontinuation of HCTZ. He reports a large volume of daily fluid intake. He also reports drinking 4-5 beers per day. Etiology is unclear but is likely multifactorial. He may have a component of post-op SIADH. Check random cortisol, TSH, urine sodium, urine creatinine, osmolality, and urine osmolality. His sodium level has improved to 127 from 123 at presentation with normal saline. Continue to monitor. (4) Hyperlipidemia: Code(s): E78.5 - Hyperlipidemia, unspecified Status: Chronic Assessment and Plan: Chronic. Continue atorvastatin. (5) Left renal mass: Code(s): N28.89 - Other specified disorders of kidney and ureter Status: Acute Assessment and Plan: He is s/p left radical nephrectomy 05/12/20. 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 Urology is on board and input is appreciated. (6) COPD (chronic obstructive pulmonary disease): Code(s): J44.9 - Chronic obstructive pulmonary disease, unspecified Status: Chronic Assessment and Plan: Chronic with no acute issues. Continue stiolto and albuterol PRN. (7) HTN (hypertension): Code(s): I10 - Essential (primary) hypertension Status: Chronic Assessment and Plan: Blood pressures were reviewed and are reasonably controlled. Continue diltiazem. Lisinopril is on hold for now due to GEOVANY. (8) Tobacco abuse: Code(s): Z72.0 - Tobacco use Status: Acute Assessment and Plan: He reports he is currently smoking 1.5 PPD. I discussed that he needs to stop smoking immediately. I discussed this for 5-10 minutes with the patient. He realizes he needs to quit but is not very motivated. He understands this will be crucial for wound healing. He also understands associated CV risks. Continue to encourage smoking cessation. (9) DVT prophylaxis: Code(s): Z29.9 - Encounter for prophylactic measures, unspecified Status: Acute Assessment and Plan: Continue SCDs. Additional Plan Initiate CIWA assessment due to hx of alcohol dependence. Time Spent With Patient Time with patient: 25 - 35 minutes Subjective Date/time seen: 06/13/20 14:51 Interval history: Mr. Sanchez is a 64 y.o. male who is seen in follow-up for surgical site infection, incisional hernia, hyponatremia, and GEOVANY. He has no specific complaints at the time of my evaluation including no subjective fever, chills, or abdominal pain. He reports that his incisional swelling, erythema, and tenderness are much better today. His appetite is good. He has no nausea or vomiting. He denies chest pain and dyspnea. He has no leg swelling or calf tenderness. He reports that he was constipated an
[2020-06-13 14:52] LABS: Add Urine Microscopic? YES; Appearance Urine Clear (Clear); Bilirubin Urine Negative (Negative); Blood Urine Negative (Negative); Color Urine Yellow (Yellow); Glucose Urine UA Negative (Negative); Ketones Urine Negative (Negative); Leukocyte Esterase Ur Trace LEU/UL (NEGATIVE); Nitrate Urine Negative (Negative); Protein Urine Negative (Negative); RBC Urine 0-2 /hpf (0-2); Specific Grav Ur 1.014 (1.001-1.035); Squamous Epithelial Cell Urine Rare /hpf (Few); Urobilinogen Urine Negative mg/dL (<2.0)
[2020-06-13 14:54] LABS: Creatinine Urine 78.5 mg/dL
[2020-06-13 14:57] LABS: Sodium Urine Random 33 meq/L
[2020-06-13 15:18] LABS: Creatinine Urine 80.5 mg/dL
[2020-06-13 15:23] LABS: MALB Creatinine Ratio 33.5 mg/g (0-30)
[2020-06-13 20:00] VITALS: PULSE 85
[2020-06-13] MEDS: ATORVASTATIN 20 MG TABLET PO (21:21)
[2020-06-13 21:24] VITALS: BP 172/68; PULSE 85; RESP 16; TEMP 37.3; O2SAT 95
[2020-06-13] MEDS: SALMETEROL XINAFOATE 50 MCG DISKUS 1 PUFF INHALATION (21:29)
[2020-06-14] VITALS: PULSE 80
[2020-06-14 04:00] VITALS: BP 172/62; PULSE 90
[2020-06-14] MEDS: SODIUM CHLORIDE 0.9% IV 1,000 ML 60 ML IV CONT (05:01)
[2020-06-14 05:09] LABS: Basophils Percent Auto 0.6 % (0.2-1.2); Eosinophils Absolute Auto 0.3 K/mm3 (0-0.3); Eosinophils Percent Auto 3.7 % (0-4.4); Hematocrit 32.1 % (42.0-52.0); Hemoglobin 11.1 g/dL (14.0-18.0); Immature Granulocyte Absolute 0.03 K/mm3 (0.00-0.031); Immature Granulocyte Percent A 0.4 % (0-0.5); Lymphocytes Absolute Auto 1.21 K/mm3 (0.9-3.2); Mean Corpuscular HGB Conc 34.6 g/dl (32-36); Mean Corpuscular Hemoglobin 31.1 pg (26-34); Mean Corpuscular Volume 89.9 fl (80-100); Mean Platelet Volume 8.5 fl (7.4-10.4); Monocytes Absolute Auto 0.8 K/mm3 (0.1-0.6); Monocytes Percent Auto 11.3 % (2.6-8.5); Neutrophils Absolute Auto 4.4 K/mm3 (1.3-6.7); Platelet Count Result 316 k/mm3 (150-375); Red Blood Count 3.57 M/mm3 (4.6-6.20); Red Cell Distribution Width 13.2 % (11.5-14.5); White Blood Count 6.7 K/mm3 (4.5-10.0)
[2020-06-14 05:19] LABS: Lactic Acid 0.7 mmol/L (0.7-2.1)
[2020-06-14 05:20] LABS: Blood Urea Nitrogen 21 mg/dL (9-20); CRP 1.4 mg/dL (<1.0); Calcium 8.5 mg/dL (8.4-10.2); Carbon Dioxide 23 mmol/L (22-30); Chloride 97 mmol/L (98-107); Estimated CRCL calculation 35 ml/min; Estimated Glomerular Filt Rate 36; Glucose 120 mg/dL (75-110); Magnesium 2.2 mg/dL (1.6-2.3); Potassium 4.4 mmol/L (3.4-5.0); Sodium 129 mmol/L (137-145)
[2020-06-14 05:38] VITALS: BP 172/62; PULSE 91; RESP 16; TEMP 36.9; O2SAT 100
[2020-06-14 05:47] LABS: Cortisol Random 9.94 ug/dL
[2020-06-14] MEDS: SALMETEROL XINAFOATE 50 MCG DISKUS 1 PUFF INHALATION (07:47)
[2020-06-14] MEDS: polyethylene glycoL 3350 17 GM POWD.PACK PO (08:06)
--- NOTE | 2020-06-14 10:42 | PM.PNGS ---
Progress Note: A&P Assessment and Plan (1) Incisional hernia: Qualifiers: Obstruction and gangrene presence: without obstruction or gangrene Qualified Code(s): K43.2 - Incisional hernia without obstruction or gangrene Code(s): K43.2 - Incisional hernia without obstruction or gangrene Status: Acute Assessment and Plan: Remains stable today. Patient is tolerating a diet and still no signs of an obstruction. Incisional hernia is still soft and reducible. Okay to discharge the patient from a surgical standpoint when medically stable. Follow-up in the office with Dr. Mcgraw in 1-2 weeks. Avoid heavy lifting and straining. Continue daily Miralax. (2) Postoperative infection: Code(s): T81.40XA - Infection following a procedure, unspecified, initial encounter Status: Acute Assessment and Plan: Currently on IV Ancef. Continue antibiotics per Urology. (3) Tobacco abuse: Code(s): Z72.0 - Tobacco use Status: Acute Assessment and Plan: Encouraged cessation. (4) Hyponatremia: Code(s): E87.1 - Hypo-osmolality and hyponatremia Status: Acute Assessment and Plan: Improving, sodium 129. Management per primary service. (5) Left renal mass: Code(s): N28.89 - Other specified disorders of kidney and ureter Status: Acute Assessment and Plan: Status post JOY left radical nephrectomy on 05/12/20 for renal cell carcinoma. Urology following. (6) COPD (chronic obstructive pulmonary disease): Code(s): J44.9 - Chronic obstructive pulmonary disease, unspecified Status: Chronic (7) HTN (hypertension): Code(s): I10 - Essential (primary) hypertension Status: Chronic (8) Hyperlipidemia: Code(s): E78.5 - Hyperlipidemia, unspecified Status: Chronic Additional Plan Discussed the plan of care with Dr. Mcgraw. Subjective Subjective Date/Time Seen: 06/14/20 09:42 Patient reports: no new complaints, feels better and tolerating a regular diet Interval history: Patient seen this morning and has no new complaints. Denies abdominal pain, nausea, vomiting, or bloating. Still tolerating a regular diet. Reports some itching at his incision. Review of Systems Review of Systems: All systems reviewed & are unremarkable except as noted in HPI and below Constitutional: Constitutional: Reports no additional constitutional complaints, Denies chills and Denies fever(s) Cardiovascular: Cardiovascular: Reports no additional cardiovascular complaints, Denies chest pain and Denies pedal edema Respiratory: Respiratory: Reports no additional respiratory complaints, Denies cough and Denies dyspnea Gastrointestinal: Gastrointestinal: Reports as per HPI and Reports no additional gastrointestinal complaints Exam Const: General: comfortable, no acute distress, alert and awake Orientation/consciousness: patient oriented x3 GI: Inspection: non-distended GI Palp: Yes Soft to palpation, No Tenderness to palpation present (GI), No Guarding due to palpation present (GI) and Yes Rebound tenderness present Auscultation: normal bowel sounds Other: Soft, reducible incisional hernia at the midline incision that is non-tender. Some mild overlying erythema around midline incision with no drainage and edges well approximated, otherwise healing well. Trochar incisions healing well. Neuro: General: moves all extremities and no focal motor deficits Extrem: General: no clubbing, cyanosis or edema Psych: Mental Status: mental status grossly normal Affect: normal affect Attitude: cooperative Thought process: Normal thought process present Insight: Good insight present (Psych) Judgement: Good judgement present (Psych) Objective Data Vital Signs Vital Signs: Vital Signs - 24 hr 06/13/20 13:30 06/13/20 20:00 06/13/20 21:24 Temperature 97.6 F 99.1 F Pulse Rate 94 85 Pulse Rate [Monitor] 85 Pulse Rate [Radial] Respiratory Rate 2
[2020-06-14 13:42] VITALS: BP 181/66; PULSE 94; RESP 18; TEMP 36.3; O2SAT 97
--- NOTE | 2020-06-14 14:51 | WPDUROPN2 ---
Progress Note: A&P Assessment and Plan (1) Hyponatremia: Code(s): E87.1 - Hypo-osmolality and hyponatremia Status: Acute (2) Incisional hernia: Qualifiers: Obstruction and gangrene presence: without obstruction or gangrene Qualified Code(s): K43.2 - Incisional hernia without obstruction or gangrene Code(s): K43.2 - Incisional hernia without obstruction or gangrene Status: Acute Assessment and Plan: Abd. wall hypermia much improved. Home on oral cephalosprorin (ie. Omnicef) OK with me. F/U: 10-days to re-check abdomen and BMP. F/U with general surgery as per their recommendations. Subjective Subjective Date/Time Seen: 06/14/20 14:51 Comfortable, no complaints. Review of Systems Cardiovascular: Cardiovascular: Denies chest pain, Denies lightheadedness, Denies palpitations and Denies dyspnea Respiratory: Respiratory: Denies dyspnea Gastrointestinal: Gastrointestinal: Denies diarrhea, Denies nausea and Denies vomiting Genitourinary: Genitourinary: Denies hematuria and Denies dysuria Endocrine: Endocrine: Denies palpitations Exam Const: General: no acute distress Resp: Effort & Inspection: normal respiratory effort GI: Inspection: non-distended GI Palp: No abdominal tenderness, No Guarding due to palpation present (GI) and Yes Hernia present (midline/incisional/reduceable) Auscultation: normal bowel sounds Objective Data Vital Signs Vital Signs: Vital Signs - 24 hr 06/13/20 20:00 06/13/20 21:24 06/14/20 00:00 Temperature 99.1 F Pulse Rate 85 Pulse Rate [Monitor] 85 Pulse Rate [Radial] 80 Respiratory Rate 16 Blood Pressure 172/68 H Pulse Oximetry 95 06/14/20 04:00 06/14/20 05:38 06/14/20 13:42 Temperature 98.4 F 97.4 F L Pulse Rate 91 94 Pulse Rate [Monitor] Pulse Rate [Radial] 90 Respiratory Rate 16 18 Blood Pressure 172/62 H 172/62 H 181/66 H Pulse Oximetry 100 97 Intake/Output Intake/Output: Intake & Output 06/11/20 06/12/20 06/13/20 06/14/20 23:59 23:59 23:59 23:59 Intake Total 1240 2810 2360 Output Total 1225 1200 Balance 1240 1585 1160 Meds/Results Medications: Active Medications Generic Name Dose Route Start Last Admin Trade Name Freq PRN Reason Stop Dose Admin Hydrocodone Bitart/Acetaminophen 1 - 2 tab 06/13/20 00:03 06/14/20 13:30 Suring 5-325 Mg PO 1 tab Q6H PRN Administration MODERATE-SEVERE PAIN Albuterol 1 puff 06/13/20 00:03 Proventil Hfa INHALATION PRN PRN Shortness Of Breath Atorvastatin Calcium 20 mg 06/13/20 21:00 06/13/20 21:21 Lipitor PO 20 mg HS CHRISTINE Administration Diltiazem HCl 120 mg 06/13/20 09:00 06/14/20 08:06 Cardizem Cd PO 120 mg DAILY CHRISTINE Administration Sodium Chloride 1,000 mls @ 75 mls/hr 06/12/20 16:05 06/14/20 07:40 Normal Saline Iv IV CONT 75 mls/hr .[id number] CHRISTINE Infusion Cefazolin Sodium 1 gm in 50 mls @ 100 mls/hr 06/13/20 00:15 06/14/20 13:33 Ancef 1 Gm/D5w 50 Ml Pm IVPB 100 mls/hr Q8HR CHRISTINE Administration Ondansetron HCl 4 mg 06/12/20 16:01 Zofran Inj IV PUSH Q4H PRN Nausea Polyethylene Glycol 17 gm 06/13/20 09:50 06/14/20 08:06 Miralax PO 17 gm QAM CHRISTINE Administration Salmeterol Xinafoate 1 puff 06/13/20 20:00 06/14/20 07:47 Serevent 50 Mcg Diskus INHALATION 1 puff Q12HRT CHRISTINE Administration Tiotropium Morton 1 cap 06/13/20 16:00 06/14/20 07:47 Spiriva INHALATION 1 cap QAM CHRISTINE Administration Radiology Results: ITS Impressions Abdomen/Pelvis CT 06/12/20 14:47 IMPRESSION: 1. Ventral hernia containing nonobstructed small bowel. Labs Labs: Laboratory Results - last 24 hr 06/13/20 06/13/20 06/13/20 14:37 14:37 14:37 WBC RBC Hgb Hct MCV MCH MCHC RDW Plt Count MPV Immature Gran % (Auto) Neut % (Auto) Lymph % (Auto) [place] % (Auto) Eos % (Auto) Baso
--- NOTE | 2020-06-14 15:06 | PM.DS ---
DS: Admitting Diagnosis Admitting Diagnosis Admitting Diagnosis: Acute kidney failure, unspecified DS: Discharge Diagnosis Discharge Diagnosis (1) GEOVANY (acute kidney injury): Code(s): N17.9 - Acute kidney failure, unspecified Status: Acute Assessment and Plan: The patient has a hx of hyponatremia. His sodium levels improved after discontinuation of HCTZ following prior admission. He reports a large volume of daily fluid intake. He also reports drinking 4-5 beers per day. Etiology is unclear but is likely multifactorial. He may have a component of post-op SIADH. Random cortisol was normal at 9.94 and TSH normal at 1.39. FeNa was 0.6% suggesting a pre-renal etiology and his sodium improved from 123 to 129 over 3 days with gentle IV normal saline rehydration. He does report that he consumes copious amounts of fluid at home. Serum osmolality was pending at the time of discharge but is found to be very mildly low at 275 although much improved from his prior level of 235 during prior hospital stay. He will need to follow-up further with his PCP and it may be beneficial to perform a CT chest for lung cancer screening given his hyponatremia and hx of tobacco dependence. I will call Dr. Ansari's office to make these recommendations. (2) Postoperative infection: Code(s): T81.40XA - Infection following a procedure, unspecified, initial encounter Status: Acute Assessment and Plan: He is s/p left hand-assisted left radical phrectomy 05/12/20. Dr. Herrmann is on board and recommended discharge home on cefdinir for 10 days. (3) Hyponatremia: Code(s): E87.1 - Hypo-osmolality and hyponatremia Status: Acute Assessment and Plan: The patient has a hx of hyponatremia. His sodium levels improved after discontinuation of HCTZ following prior admission. He reports a large volume of daily fluid intake. He also reports drinking 4-5 beers per day. Etiology is unclear but is likely multifactorial. He may have a component of post-op SIADH. Random cortisol was normal at 9.94 and TSH normal at 1.39. FeNa was 0.6% suggesting a pre-renal etiology and his sodium improved from 123 to 129 over 3 days with gentle IV normal saline rehydration. He does report that he consumes copious amounts of fluid at home. Serum osmolality was pending at the time of discharge but is found to be very mildly low at 275 although much improved from his prior level of 235 during prior hospital stay. He will need to follow-up further with his PCP and it may be beneficial to perform a CT chest for lung cancer screening given his hyponatremia and hx of tobacco dependence. I will call Dr. Ansari's office to make these recommendations. (4) Hyperlipidemia: Code(s): E78.5 - Hyperlipidemia, unspecified Status: Chronic Assessment and Plan: Atorvastatin was continued. 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 He is s/p left radical nephrectomy 05/12/20. Management per urology. (6) COPD (chronic obstructive pulmonary disease): Code(s): J44.9 - Chronic obstructive pulmonary disease, unspecified Status: Chronic Assessment and Plan: Stiolto and albuterol were continued. (7) HTN (hypertension): Code(s): I10 - Essential (primary) hypertension Status: Chronic Assessment and Plan: Blood pressures were reasonably controlled although lisinopril was held due to GOEVANY and amlodipine was initiated. He will need to follow-up with his PCP for further BP management and he was advised to keep a daily blood pressure log. (8) Tobacco abuse: Code(s): Z72.0 - Tobacco use Status: Acute Assessment and Plan: He reports he is currently smoking 1.5 PPD. Smoking cessation was discussed at length and he understa
[2020-06-14] MEDS: amLODIPine BESYLATE 5 MG TABLET PO (15:11)
[2020-06-14 15:14] VITALS: BP 186/65
[2020-06-16 05:07] LABS: Osmolality, Urine 271 mOsm/kg (50-1200)
== END 2020-06-14 15:45 | disposition home or self-care (01) | DRG 683 ==
LOC: ANHED 16:00 → ANH2MED 16:41
PROVIDERS: Nurse Practitioner; Physician Assistant; Admitting Provider Family Medicine; Emergency Provider Emergency Medicine; PCP Family Medicine; Visit Provider Physician Assistant
DX: N17.9 Acute kidney failure, unspecified (principal); T81.49XA Infection following a procedure, other surgical site, initial encounter; E87.1 Hypo-osmolality and hyponatremia; C64.2 Malignant neoplasm of left kidney, except renal pelvis; K43.2 Incisional hernia without obstruction or gangrene; E78.5 Hyperlipidemia, unspecified; I10 Essential (primary) hypertension; J44.9 Chronic obstructive pulmonary disease, unspecified; F17.210 Nicotine dependence, cigarettes, uncomplicated; Z90.5 Acquired absence of kidney; Z98.1 Arthrodesis status
CPT/HCPCS: 36415; 74177; 80048; 80053; 81001; 82043; 82533; 82570; 83605; 83735; 83930; 83935; 84132; 84300; 84443; 85025; 85652; 86140; 87040; 94640; 96361; 96374; 96375; 99285; A9270; J0690; J2270; J2405; J7030; Q9967

== ENCOUNTER 2020-07-15 01:14 | Outpatient (CLI) | payer MEDICARE, OTHER, SELFPAY ==
[2020-07-15 19:18] LABS: SARS-CoV-2 RNA PCR Negative
== END 2020-07-15 01:15 | disposition home or self-care (01) ==
LOC: ANHCOVIDDT 01:15
PROVIDERS: PCP Family Medicine; Visit Provider Surgery
DX: Z01.812 Encounter for preprocedural laboratory examination (principal); Z20.828 Contact with and (suspected) exposure to other viral communicable diseases
CPT/HCPCS: 87635; C9803; U0003

== ENCOUNTER 2020-07-15 08:55 | Outpatient (CLI) | payer MEDICARE, OTHER, SELFPAY ==
[2020-07-15 09:20] LABS: Anion Gap 9 mmol/L (8-16); Blood Urea Nitrogen 14 mg/dL (9-20); Carbon Dioxide 27 mmol/L (22-30); Chloride 97 mmol/L (98-107); Estimated Glomerular Filt Rate > 60; Glucose 109 mg/dL (75-110); Potassium 3.8 mmol/L (3.4-5.0); Sodium 133 mmol/L (137-145)
== END 2020-07-15 08:56 | disposition home or self-care (01) ==
LOC: ANHSURGERY 08:57
PROVIDERS: Anesthesiology; PCP Family Medicine; Visit Provider Surgery
DX: K43.2 Incisional hernia without obstruction or gangrene (principal); E87.1 Hypo-osmolality and hyponatremia
CPT/HCPCS: 36415; 80048; 86850; 86900; 86901; 87635; C9803; U0003

== ENCOUNTER 2020-07-19 13:49 | Inpatient (IN) | payer MEDICARE, OTHER, SELFPAY ==
[2020-07-12 12:34] VITALS: BMI 25.1
[2020-07-18] VITALS (10 sets, daily range): BP systolic 133–167; BP diastolic 58–80; PULSE 70–95; RESP 12–20; TEMP 35.9–37; O2SAT 93–100
[2020-07-18] MEDS: ACETAMINOPHEN 500 MG TABLET 1000 MG PO ×3 (08:44→21:36)
[2020-07-18] MEDS: LACTATED RINGERS 1,000 ML 30 ML IV CONT ×2 (09:00→14:06)
--- NOTE | 2020-07-18 09:39 | WPDANESEPPF ---
Anes - Initial Pre Proc Eval Procedure: Operation Date: 07/18/20 10:30 Proposed Procedures p Laparoscopic Incarcerated Incisional Hernia Repair with Mesh, Davinci Assisted - Pedro Luis Mcgraw DO Date/Time: 07/18/20 09:39 Surgeon: Pedro Luis Mcgraw DO Pre Op Diagnosis: incarcerated incisional hernia Patient Data Age: 64 Gender: M Height: 5 ft 9 in Weight: 77.3 kg Last Vital Signs Temp 37.0 C 07/18/20 08:42 Pulse 95 07/18/20 08:42 Resp 20 07/18/20 08:42 BP 156/65 H 07/18/20 08:42 Pulse Ox 96 07/18/20 08:42 Allergies Allergy/AdvReac Type Severity Reaction Status Date / Time No Known Allergies Allergy Verified 07/18/20 08:58 Home Medications Medication Instructions Recorded Confirmed Type albuterol sulfate 1 puff INHALATION PRN PRN 02/18/20 07/18/20 History triamcinolone acetonide [Triderm] 0.1 % TOPICAL PRN PRN 02/18/20 07/18/20 History Stiolto Respimat 2 puff INHALATION DAILY 03/07/20 07/18/20 History atorvastatin 20 mg PO HS 03/07/20 07/18/20 History hydrocodone-acetaminophen 1 - 2 tablet PO Q6H PRN #30 tablet 05/13/20 07/12/20 Rx amlodipine [Norvasc] 10 mg PO QAM 07/12/20 07/18/20 History Patient hx anesthesia problems: none Family hx anesthesia problems: none PMFSH Past Medical History Medical History COPD (chronic obstructive pulmonary disease) his asbestos exposure HTN (hypertension) Hyperlipidemia Left renal mass Status post left nephrectomy Tobacco abuse 1.5 PPD x 40 years. Surgical History Surgical History H/O left nephrectomy 05/12/20 JOY left radical nephrectomy. History of appendectomy Open appendectomy as a child. History of left inguinal hernia repair in 1971 at [facility]. S/P cervical spinal fusion Family History Family History Mother Breast cancer Father Cerebrovascular accident Sibling Esophageal cancer Lung cancer Social History Social History Social History: The patient is and she has since . He has 1 daughter and she recently came to live with him and he has 1 granddaughter. He does not have a durable power employment attorney for healthcare but desires to be a full code. He drinks about 5 beers in a week he smokes marijuana maybe twice a week if that. He still continues to the smoke about a pack and half a cigarettes a day for the last 40 years. Smoking packs per day: 1.5 Smoking cigarettes per day: 30.0 Years smoked: 40 Smoking pack-years: 60.00 Smoking status: Current every day smoker Tobacco type: cigarettes Second hand tobacco smoke exposure: Yes Additional smoking assessment comments: 1 1/2PK/DAY/AGE 17 Alcohol intake: current Drinks per week: 5 Substance use: former Substance use type: marijuana Other substance usage details: GUMMIES IN THE PAST - NONE CURRENTLY Living arrangements: alone Additional occupation/education comments: Retired from [employer]. Gender identity (if verbalized by the patient): Male Spiritual care concerns: No Agree to blood products: Yes Anes - Eval Final PreProcedure Day of Procedure 07/18/20 09:39 Patient weight: normal Heart: regular rate and rhythm Lungs: decreased breath sounds Airway: Mallampati scale class 1 Neurological: alert and oriented Last oral intake: >/= 8 hours ASA classification: III Emergent: no Anesthetic plan: proceed Anesthesia type and monitoring: general ETT and standard monitoring Informed Consent: The patient's anesthetic plan and its attendant risks and benefits were discussed with the patient/family/POA. Questions were solicited and answers provided to the satisfaction of the patient/family/POA.
--- NOTE | 2020-07-18 09:41 | WPDHPUPDATE1 ---
History and Physical Update Update Date/Time: 07/18/20 09:41 History and Physical has been reviewed, including an updated exam of the patient. There are NO changes in the patient's condition. Risks, benefits, and alternatives have been discussed and questions answered. Patient agrees to proceed with procedure.
[2020-07-18] MEDS: KETOROLAC 15 MG/ML VIAL (*BKC) IV PUSH (10:02)
[2020-07-18] MEDS: ceFAZolin 2 GM/D5W 50 ML 2 GM/50 ML BAG IVPB ×2 (10:44→18:12)
--- NOTE | 2020-07-18 14:01 | PM.PROC ---
Procedure Note - Detailed Date of procedure: 07/18/20 Pre-op diagnosis: incarcerated incisional hernia Post-op diagnosis: same Procedure performed: Laparoscopic Incarcerated incisional hernia repair with Symbotex mesh, da Dominic assisted Description of procedure: Procedure as well as risks, benefits, and alternatives were discussed with the patient. Written consent was obtained and placed in chart prior to procedure. Patient was brought back to surgical suite. he was placed supine on operating table. Time-out was done to confirm patient and procedure. he was then intubated by the anesthesia department. A bump was placed under his left hip, and the bed was flexed slightly to extend the space between his costal margin and iliac crest. his abdomen was prepped and draped in sterile fashion using chlorhexidine prep. A 5 millimeter incision was made in the left upper quadrant, and a 5 millimeter Optiview trocar was advanced through the abdominal layers under direct visualization. Once inside the abdominal cavity, carbon dioxide insufflation was used to create a pneumoperitoneum. his abdomen was inspected. An 8 millimeter incision was made in the left lower quadrant, and an 8 millimeter robotic trocar was placed under direct visualization. Another 8 millimeter incision was made in the left lateral abdomen, and an 8 millimeter robotic trocar was placed under direct visualization. Exparel was infiltrated along the lateral abdominal vernon to perform a transversus abdominis plane block bilaterally. The 5 millimeter port was removed, the incision was extended to 12 millimeters, and a 12 millimeter air seal port was placed under direct visualization. A Graham-Garber cone was also used to place an 0-Vicryl simple interrupted suture at this trocar site. The robotic arms were brought up to the patient's bedside and secured to the ports. The camera and instruments were inserted, and I then moved over to the robotic console and took control of the camera and instruments. After careful thorough inspection of the abdominal cavity, I began my dissection at the hernia. there was omentum and small bowel stuck within the hernia sac of the large wide-mouth incisional hernia. The adhesions were carefully taken down using hook electrocautery and blunt dissection. The small bowel was fully reduced from within the hernia defect. The bowel was carefully inspected and appeared healthy without any evidence of injury to the bowel wall. The falciform ligament was taken down for about 10 cm cephalad to adequately visualize the midline fascia. I then measured the hernia size. The hernia measured 8 cm vertically by 6 cm wide. The fascia was closed using an 0-Stratafix running suture in a vertical fashion. I began 2 separate sutures at the superior and inferior margins of the hernia in carefully ran this together to meet in the middle. The suture was overlapped above and below to lock the suture in place. A Symbotex 15cm x 20cm mesh was then placed within the abdominal cavity. This was oriented vertically with the mesh centered on the hernia defect. The mesh was then secured around the entire perimeter using 2 0 V lock running suture. The repair was inspected, and one final inspection was made around the abdominal cavity. The robotic instruments were then removed, and the robotic arms were disengaged from the trocars. The ports were then removed under direct visualization, the camera was removed, and the pneumoperitoneum was released. The 0 Vicryl transfascial suture was tied down. The skin of the incisions was then approximated using 4-0 Monocryl subcuticular suture. Exofin glue was then applied on top. The patient was then awakened from anesthesia, extubated, and transferred to recovery. Implants: Symbotex 15cm x 20cm mesh Anesthesia: GETA and local ( Exparel) Surgeon: Pedro Luis Mcgraw DO Estimated blood loss (mL): 5 Complications: No immediate complications Conditio
--- NOTE | 2020-07-18 15:16 | PC.NURSE ---
This patient, Andre Sanchez, was admitted to [facility] Room 314-01. Patient/family oriented to hospital policies and general routines including ID bracelet, bed and alarms, visiting hours, pain management, procedures, bathroom and other care routines, personal items, smoking policy, room service/diet, and visiting hours. Valuables list has been completed. Information on how to activate the Rapid Response Team has been discussed. Patient/Family are encouraged to report perceived risks to care and to ask questions if they do not understand what they are told or what they should do.
[2020-07-18] MEDS: LACTATED RINGERS 1,000 ML 100 ML IV CONT (15:35)
[2020-07-18] MEDS: ATORVASTATIN 20 MG TABLET PO (21:37)
[2020-07-18] MEDS: ENOXAPARIN 30 MG/0.3 ML SYRINGE SUB-Q (21:37)
[2020-07-19] VITALS: BP 145/58; PULSE 87; RESP 20; TEMP 36.8; O2SAT 94
[2020-07-19] MEDS: ACETAMINOPHEN 500 MG TABLET 1000 MG PO ×2 (02:40→07:45)
[2020-07-19] MEDS: ceFAZolin 2 GM/D5W 50 ML 2 GM/50 ML BAG IVPB ×2 (02:41→11:28)
[2020-07-19 04:00] VITALS: BP 148/62; PULSE 90; RESP 20; TEMP 36.7; O2SAT 95
[2020-07-19 06:37] LABS: Hematocrit 32.2 % (42.0-52.0); Hemoglobin 11.2 g/dL (14.0-18.0); Mean Corpuscular HGB Conc 34.8 g/dl (32-36); Mean Corpuscular Hemoglobin 30.4 pg (26-34); Mean Corpuscular Volume 87.5 fl (80-100); Mean Platelet Volume 9.5 fl (7.4-10.4); Platelet Count Result 349 k/mm3 (150-375); Red Blood Count 3.68 M/mm3 (4.6-6.20); Red Cell Distribution Width 15.4 % (11.5-14.5); White Blood Count 13.1 K/mm3 (4.5-10.0)
[2020-07-19 06:54] LABS: Anion Gap 8 mmol/L (8-16); Blood Urea Nitrogen 14 mg/dL (9-20); Calcium 8.7 mg/dL (8.4-10.2); Carbon Dioxide 28 mmol/L (22-30); Chloride 95 mmol/L (98-107); Estimated CRCL calculation 59 ml/min; Estimated Glomerular Filt Rate > 60; Glucose 129 mg/dL (75-110); Potassium 3.6 mmol/L (3.4-5.0); Sodium 131 mmol/L (137-145)
[2020-07-19] MEDS: polyethylene glycoL 3350 17 GM POWD.PACK PO (07:45)
[2020-07-19] MEDS: amLODIPine BESYLATE 5 MG TABLET 10 MG PO (07:45)
[2020-07-19] MEDS: ENOXAPARIN 30 MG/0.3 ML SYRINGE SUB-Q ×2 (07:45→21:59)
--- NOTE | 2020-07-19 07:52 | WPDANESPN ---
Anes - Prog Note Post-Op Date/Time: 07/19/20 07:52 Cardiovascular status: normal Respiratory status: normal Airway patency: baseline Mental status: baseline Post-Op hydration status: normal Vital Signs: Last Vital Signs Temp 36.7 C 07/19/20 04:00 Pulse 90 07/19/20 04:00 Resp 20 07/19/20 04:00 BP 148/62 H 07/19/20 04:00 Pulse Ox 95 07/19/20 04:00 I/O: Intake & Output 07/18/20 07/18/20 07/19/20 15:59 23:59 07:59 Intake Total 971 500 3817 Output Total 650 Balance 350 890 770 Laboratory Tests 07/19/20 05:57 07/19/20 05:57 07/19/20 07/19/20 05:57 05:57 WBC 13.1 H RBC 3.68 L Hgb 11.2 L Hct 32.2 L MCV 87.5 MCH 30.4 MCHC 34.8 RDW 15.4 H Plt Count 349 MPV 9.5 Sodium 131 L Potassium 3.6 Chloride 95 L Carbon Dioxide 28 Anion Gap 8 BUN 14 Creatinine 1.10 Estim Creat Clear Calc 59 Estimated GFR > 60 Glucose 129 H Calcium 8.7 Post-procedural complaints: none Patient Feedback: Patient satisfied with anesthetic care.
--- NOTE | 2020-07-19 08:43 | PM.PNGS ---
Progress Note: A&P Assessment and Plan (1) Incarcerated incisional hernia: Code(s): K43.0 - Incisional hernia with obstruction, without gangrene Status: Acute Assessment and Plan: Patient able to get up with assistance, but not able to move much on his own yet. Pain controlled with Dilaudid. Will begin advancing diet and transition to oral pain meds. Will likely need to stay one more day to get pain adequately controlled and tolerate activity. Will order a Walker for patient to ambulate here in the hospital with added assistance. (2) Postoperative pain: Code(s): G89.18 - Other acute postprocedural pain Status: Acute (3) Tobacco abuse: Code(s): Z72.0 - Tobacco use Status: Acute Assessment and Plan: Previously discussed smoking cessation. Patient knows that smoking likely contributed to both his kidney cancer and his propensity to develop an incisional hernia. (4) Renal cell carcinoma: Code(s): C64.9 - Malignant neoplasm of unspecified kidney, except renal pelvis Status: Acute Subjective Subjective Date/Time Seen: 07/19/20 08:43 Post Op day: 1 Patient reports: still having pain, flatus and no bowel movement Interval history: Tolerating clear liquids. No nausea or vomiting. Getting up with assistance. Exam GI: Inspection: non-distended GI Palp: Yes Soft to palpation and Yes Tenderness to palpation present (GI) (around hernia repair) Auscultation: normal bowel sounds Objective Data Vital Signs Vital Signs: Vital Signs - 24 hr 07/18/20 14:06 07/18/20 14:20 07/18/20 14:35 Temperature 36.1 C L Pulse Rate 77 72 70 Respiratory Rate 14 14 12 Blood Pressure 144/74 H 147/72 H 137/59 L Pulse Oximetry 100 100 100 07/18/20 14:50 07/18/20 15:03 07/18/20 15:07 Temperature 36.3 C L 35.9 C L Pulse Rate 77 75 80 Respiratory Rate 18 16 16 Blood Pressure 145/70 H 142/72 H 154/66 H Pulse Oximetry 93 93 100 07/18/20 15:22 07/18/20 15:52 07/18/20 20:00 Temperature 36.0 C L 36.0 C L 36.7 C Pulse Rate 78 80 88 Respiratory Rate 16 16 20 Blood Pressure 167/69 H 159/80 H 133/58 L Pulse Oximetry 94 93 93 07/19/20 00:00 07/19/20 04:00 Temperature 36.8 C 36.7 C Pulse Rate 87 90 Respiratory Rate 20 20 Blood Pressure 145/58 H 148/62 H Pulse Oximetry 94 95 Intake/Output Intake/Output: Intake & Output 07/16/20 07/17/20 07/18/20 07/19/20 23:59 23:59 23:59 23:59 Intake Total 1240 1420 Output Total 650 Balance 1240 770 Meds/Results Medications: Active Medications Generic Name Dose Route Start Last Admin Trade Name Freq PRN Reason Stop Dose Admin Amlodipine Besylate 10 mg 07/19/20 09:00 07/19/20 07:45 Norvasc PO 10 mg QAM CHRISTINE Administration Atorvastatin Calcium 20 mg 07/18/20 21:00 07/18/20 21:37 Lipitor PO 20 mg HS CHRISTINE Administration Enoxaparin Sodium 30 mg 07/18/20 21:00 07/19/20 07:45 Lovenox SUB-Q 30 mg Q12HR CHRISTINE Administration Hydromorphone HCl 0.5 mg 07/18/20 15:07 07/19/20 05:37 Dilaudid Inj IV PUSH 0.5 mg Q2H PRN Administration Pain Rated 4-6 Hydromorphone HCl 1 mg 07/18/20 15:07 Dilaudid Inj IV PUSH Q2H PRN Pain Rated 7-10 Cefazolin Sodium 2 gm in 50 mls @ 100 mls/hr 07/18/20 19:00 07/19/20 02:41 Ancef 2 Gm/D5w 50 Ml IVPB 07/19/20 11:29 100 mls/hr Q8H [facility] Administration Non-Formulary Medication 2 puff 07/19/20 09:00 Tiotropium-Olodaterol [Stiolto Respimat] INHALATION 08/18/20 09:01 DAILY [facility] Ondansetron HCl 4 mg 07/18/20 15:07 Zofran Inj IV PUSH Q4H PRN Nausea And Vomiting Polyethylene Glycol 17 gm 07/19/20 09:00 07/19/20 07:45 Miralax PO 17 gm QAM CHRISTINE Administration Labs Labs: Laboratory Results - last 24 hr 07/19/20 07/19/20 05:57 05:57 WBC 13.1 H RBC 3.68 L Hgb 11.2 L Hct 32.2 L MCV 87.5 MCH 30.4 MCHC 34.8 RDW 15.4 H Plt Count 349 MPV 9.5 Sodium 131 L
[2020-07-19 14:00] VITALS: BP 125/55; PULSE 97; RESP 18; TEMP 36.6; O2SAT 94
[2020-07-19 15:00] VITALS: O2SAT 94
[2020-07-19] MEDS: ATORVASTATIN 20 MG TABLET PO (21:59)
[2020-07-19 22:00] VITALS: BP 153/70; PULSE 93; RESP 18; TEMP 37.1; O2SAT 96
[2020-07-20 06:00] VITALS: BP 135/57; PULSE 91; RESP 18; TEMP 36.6; O2SAT 94
--- NOTE | 2020-07-20 08:37 | PM.DS ---
DS: Admitting Diagnosis Admitting Diagnosis Admitting Diagnosis: incarcerated incisional hernia DS: Discharge Diagnosis Discharge Diagnosis (1) Incarcerated incisional hernia: Code(s): K43.0 - Incisional hernia with obstruction, without gangrene Status: Acute (2) Tobacco abuse: Code(s): Z72.0 - Tobacco use Status: Acute (3) COPD (chronic obstructive pulmonary disease): Code(s): J44.9 - Chronic obstructive pulmonary disease, unspecified Status: Chronic (4) Renal cell carcinoma: Code(s): C64.9 - Malignant neoplasm of unspecified kidney, except renal pelvis Status: Acute DS: Summary Hospital Course Reason for hospitalization: Incarcerated incisional hernia Hospital Course: this is a 64-year-old man who presented with an incisional hernia from a recent hand assisted laparoscopic left nephrectomy. The patient was found to have a large incisional hernia near the umbilicus. This was repaired laparoscopically with robotic assistance. He did have a long segment of small bowel that was densely adherent within the hernia sac. This was carefully reduced and there was no evidence of bowel injury. He was admitted to the surgical floor postoperatively for pain control and gradually increasing activity with assistance. On postop day 1 he was doing well. He was still requiring some IV pain medications, but this was gradually transitioned to oral pain medications. He was still requiring a significant amount of assistance getting from bed to the chair. His diet was advanced as tolerated. On postop day 2 his pain was controlled with oral pain medications and he was getting up ambulating with less difficulty. Decision was made to send him home on postop day 2. Time spent discussing smoking cessation with patient: 3 to 10 minutes Status at Discharge Functional status at discharge: uses cane/walker Overall status at discharge: patient is progressing back to baseline Time Spent with Patient Time attestation: Total time spent providing and/or coordinating discharge services: Time spent: Less than 30 minutes Exam Const: General: no acute distress Neck: Neck: supple and no JVD Resp: Effort & Inspection: normal respiratory effort Auscultation: clear to auscultation bilaterally Cardio: Rate: regular rate Rhythm: regular rhythm GI: Inspection: non-distended GI Palp: Yes Soft to palpation and Yes Tenderness to palpation present (GI) ( Periumbilical) Auscultation: abnormal bowel sounds Other: mild bruising at skin just above umbilicus. No recurrent hernia noted. Incisions healing well. Psych: Appearance: grossly normal Mental Status: mental status grossly normal Speech and movement: Normal speech and movement present Discharge Plan Discharge Attending physician on discharge: Pedro Luis Juarez Discharging Clinician: Pedro Luis Juarez Patient Disposition: Home, Self-Care Activity: may shower and other - see discharge instructions Diet: as tolerated Wound Care Instructions: other - see discharge instructions Discharge Instructions: DISCHARGE INSTRUCTION SHEET FOR HERNIA, GALLBLADDER AND APPENDIX SURGERIES DR. JUAREZ PATIENT TO TAKE HOME 1. May shower in 24 hours, no soaking in bath x 2weeks. 2. Call office for: Wound increasingly painful or bleeding Vomiting Fever of greater than 101 degrees 3. If no bowel movement for three days, take 1 oz. (30 ml) Milk of Magnesia or MiraLax 17g 1 to 2 times daily. 4. No heavy lifting > 10-15 pounds x 6-8 weeks for hernia repairs and 2 weeks for laparoscopic cholecystectomy or appendectomy. 5. No driving for 3 days or while taking narcotic pain medications. 6. Ice to surgical site for 48 hours (30 min on, then 30 min off). 7. Up walking 10-30 minutes three times per day. 8. Resume previous home medications. 9. Follow-up 10-14 days in office for wou
[2020-07-20] MEDS: amLODIPine BESYLATE 5 MG TABLET 10 MG PO (08:54)
[2020-07-20] MEDS: polyethylene glycoL 3350 17 GM POWD.PACK PO (08:54)
[2020-07-20] MEDS: ENOXAPARIN 30 MG/0.3 ML SYRINGE SUB-Q (08:54)
== END 2020-07-20 12:10 | disposition home or self-care (01) | DRG 354 ==
LOC: ANHSURGERY 14:48 → ANH3MEDSUR 07-20 08:43
PROVIDERS: Admitting Provider Surgery; PCP Family Medicine; Visit Provider Surgery
PROC: 0WUF4JZ Supplement Abdominal Wall with Synthetic Substitute, Percutaneous Endoscopic Approach (ICD-10-PCS; principal; 2020-07-18 10:30)
DX: K43.0 Incisional hernia with obstruction, without gangrene (principal); C64.9 Malignant neoplasm of unspecified kidney, except renal pelvis; G89.18 Other acute postprocedural pain; J44.9 Chronic obstructive pulmonary disease, unspecified; F17.210 Nicotine dependence, cigarettes, uncomplicated; I10 Essential (primary) hypertension; E78.5 Hyperlipidemia, unspecified; Z90.5 Acquired absence of kidney; Z79.899 Other long term (current) drug therapy
CPT/HCPCS: 36415; 80048; 85027; A9270; C1781; C9290; J0330; J0690; J1100; J1170; J1650; J1885; J2250; J2405; J2704; J3010; J7120

== ENCOUNTER 2020-07-27 10:50 | Outpatient (CLI) | payer MEDICARE, OTHER, SELFPAY ==
--- NOTE | ~2020-07-27 | US_ITS ---
EXAMINATION: US venous doppler [facility] DATE: 07/27/2020 11:17 INDICATION: Left lower limb swelling. TECHNIQUE: Grayscale ultrasound images without and with compression and Doppler ultrasound images of the left lower extremity veins were obtained. COMPARISON: None. FINDINGS: The visualized portions of left common femoral vein, profunda (deep) femoral vein, femoral vein, popl iteal vein, peroneal veins, posterior tibial veins, and greater saphenous vein outflow are patent. IMPRESSION: 1. No deep venous thrombosis. Reviewed, dictated and finalized at location A.
== END 2020-07-27 10:51 | disposition home or self-care (01) ==
LOC: CHSIMG 10:53
PROVIDERS: PCP Family Medicine; Visit Provider Family Medicine
DX: R60.0 Localized edema (principal)
CPT/HCPCS: 93971

== ENCOUNTER 2020-11-15 09:45 | Outpatient (CLI) | payer MEDICARE, OTHER, SELFPAY ==
--- NOTE | ~2020-11-15 | US_ITS ---
EXAMINATION: US venous doppler [facility] DATE: 11/15/2020 10:23 INDICATION: Lower limb pain. TECHNIQUE: Grayscale ultrasound images without and with compression and Doppler ultrasound images of the bilateral lower extremity veins were obtained. COMPARISON: Ultrasound 07/27/2020 FINDINGS: The visualized portions of right common femoral vein, profunda (deep) femoral vein, femoral vein, pop liteal vein, peroneal veins, posterior tibial veins, and greater saphenous vein outflow are patent. The visualized portions of left common femoral vein, profunda femoral vein, femoral vein, popliteal v ein, peroneal veins, posterior tibial veins, and greater saphenous vein outflow are patent. IMPRESSION: 1. No deep venous thrombosis. Reviewed, dictated and finalized at location A. UTER SUPPORT SPECIALIST
== END 2020-11-15 09:46 | disposition home or self-care (01) ==
LOC: CHSIMG 09:48
PROVIDERS: PCP Family Medicine; Visit Provider Family Medicine
DX: M79.605 Pain in left leg (principal); M79.604 Pain in right leg
CPT/HCPCS: 93970

== ENCOUNTER 2020-12-13 08:50 | Outpatient (CLI) | payer MEDICARE, OTHER, SELFPAY ==
--- NOTE | ~2020-12-13 | CT_ITS ---
EXAMINATION: CT abdomen pelvis w con EXAM DATE: 12/13/2020 09:37 INDICATION: Malignant neoplasm of LT kidney . TECHNIQUE: Spiral CT of the abdomen and pelvis was performed following intravenous injection of 100 m L Omnipaque 350. Axial, coronal and sagittal images were reviewed. The dose-length product (DLP) fo r this examination was 402.52 mGy-cm. The exposure was tailored according to patient size (auto mA e xposure control), and iterative reconstruction (ASIR) was used as additional dose reduction technique . Comparison is made to prior examination from 06/12/2020. FINDINGS: In the left liver lobe lateral segment anteriorly there is approximately 9 mm focal region most likely a flash filling hemangioma, is better visualized than on prior study. There are pancreati c calcifications, chronic pancreatitis. The adrenal glands are unremarkable, spleen is normal in size . There is perisplenic hypodense region along its medial margin measuring up to about 2 cm, difficult t o determine whether or not this is intracapsular or extracapsular. There was some inflammation in thi s location on the prior examination. Most likely chronic seroma, a postoperative change. Gallbladder is unremarkable. No biliary obstruction. Status post left nephrectomy. No soft tissue density within the nephrectomy bed or evidence of retrop eritoneal lymphadenopathy. No right hydronephrosis. Possible punctate right nephrolithiasis. The pros gregory is unremarkable. The bladder is unremarkable. There is severe scattered arteriosclerotic disea se, particularly at the distal aspect of the abdominal aorta and common iliac arteries. 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 There i s mild sigmoid colonic diverticulosis. There is no adjacent inflammatory change to suggest diverticu litis. The stomach and small bowel are unremarkable. There is expected amount of colonic stool. No free intraperitoneal gas. The heart is normal in size. There are no pericardial or pleural effusi ons. Some linear right basilar scarring unchanged. There are no osteoblastic or osteolytic lesions identified. IMPRESSION: 1. Postoperative changes following left nephrectomy. No metastatic disease identified. 2. Severe aortoiliac arterial sclerosis; patient might benefit from vascular consult. 3. Chronic pancreatitis. 4. Colonic diverticulosis. Reviewed, dictated and finalized at location A. NG MACHINE OPERATOR HELPER IMPRESSION: 1. Postoperative changes following left nephrectomy. No metastatic disease amanda ntified. 2. Severe aortoiliac arterial sclerosis; patient might benefit from vascular c onsult. 3. Chronic pancreatitis. 4. Colonic diverticulosis.
[2020-12-13 09:26] LABS: Estimated Glomerular Filt Rate > 60
== END 2020-12-13 08:51 | disposition home or self-care (01) ==
PROVIDERS: PCP Family Medicine; Visit Provider Urology
DX: C64.2 Malignant neoplasm of left kidney, except renal pelvis (principal); K57.30 Diverticulosis of large intestine without perforation or abscess without bleeding; K85.90 Acute pancreatitis without necrosis or infection, unspecified
CPT/HCPCS: 74177; Q9967

== ENCOUNTER 2021-01-23 08:03 | Outpatient (CLI) | payer MEDICARE, SELFPAY ==
--- NOTE | ~2021-01-23 | US_ITS ---
EXAMINATION: US arterial ankle brachial ind DATE: 01/23/2021 09:02 INDICATION: Peripheral vascular disease with foot swelling and leg heaviness when walking. TECHNIQUE: Segmental pressures and plethysmographic and Doppler waveforms of the brachial and lower e xtremity arteries were obtained. COMPARISON: None. FINDINGS: Right and left brachial artery pressures of 126 mm Hg and 134 mm Hg, respectively, are concordant (no rmal difference <= 30 mmHg). The right ankle-brachial index (ELIZABETH) is 0.63 (normal >= 0.9-1.0). The right great toe-brachial index (TBI) is 0.54 (normal >= 0.65). Arterial Doppler waveforms are biphasic with brisk systolic upstrokes at the right posterior tibial and dorsalis pedis arteries. The left ELIZABETH is 0.82. The left TBI is 0.63. Arterial Doppler waveforms are biphasic with brisk systol ic upstrokes at both the left posterior tibial and dorsalis pedis arteries. IMPRESSION: 1. Arterial occlusive disease to the bilateral lower limbs with moderately decreased right ELIZABETH and mi ldly decreased left ELIZABETH. Reviewed, dictated and finalized at location B. ER TUBING BACKER IMPRESSION: 1. Arterial occlusive disease to the bilateral lower limbs with moderately decr eased right ELIZABETH and mildly decreased left ELIZABETH.
== END 2021-01-23 08:04 | disposition home or self-care (01) ==
PROVIDERS: PCP Family Medicine; Visit Provider Family Medicine
DX: I73.9 Peripheral vascular disease, unspecified (principal)
CPT/HCPCS: 93922

== ENCOUNTER 2022-03-22 08:33 | Outpatient (CLI) | payer MEDICARE, SELFPAY ==
--- NOTE | ~2022-03-22 | CT_ITS ---
EXAMINATION: CT abdomen pelvis w con DATE: 03/22/2022 09:26 INDICATION: Status post left nephrectomy for renal cancer; possible right renal abnormality TECHNIQUE: Computed tomography (CT) of the abdomen and pelvis was performed with 100 CC Omnipaque 350 intravenous contrast. Automated exposure control and iterative reconstruction technique were employe d. Exam dose: 394.50 mGy-cm total exam DLP. COMPARISON: 12/13/2020 CT abdomen pelvis 06/12/2020 CT abdomen pelvis 02/18/2020 CT abdomen pelvis FINDINGS: There is chronic discoid scarring at the lung bases, particularly at the right lower lobe. No consolidation at the lung bases. Normal heart size. No pericardial or pleural effusion. Foramen of or ganglion defect containing transverse colon, stomach and liver. No hepatic, splenic, pancreatic or adrenal space-occupying mass lesion. Multiple pancreatic calcifications, consistent with chronic pancreatitis. Status post left nephrectomy. No suspicious mass is noted in the left nephrectomy bed. Stable approximately 9 mm hypoattenuating lesion at the inferior tip of the right kidney, stable in a ppearance since 06/12/2020. No right renal space-occupying mass lesion is noted otherwise. No urinary tract calculus or hydroureteronephrosis. No abdominal aortic aneurysm. There is extensive calcification of the abdominal aorta as well as the origin of the celiac and superior mesenteric and renal arteries. Aortobiiliac endovascular stent. Bk cification of the iliac and femoral arteries. No intraperitoneal or retroperitoneal or pelvic mass lesion or adenopathy or ascites. The urinary bladder is unremarkable. Moderate prostate enlargement and mild calcification. Normal appendix. Diverticulosis of the sigmoid colon; no CT evidence of diverticulitis. No bowel obstruction, bowel wa ll thickening, pneumatosis or intraperitoneal free air. Severe degenerative disc disease and mild retrolisthesis at L5-S1. Diffuse osteopenia. Bilateral hip osteoarthritis. IMPRESSION: Status post left nephrectomy for history of renal cancer Stable 9 mm hypoattenuating lesion of lower pole of right kidney, not significantly changed since 05/25 Chronic pancreatitis Diverticulosis of left colon; no CT evidence of diverticulitis Normal appendix Aortobiiliac stent Reviewed, dictated and finalized at Location A. Reviewed, dictated and finalized at location A. IMPRESSION: Status post left nephrectomy for history of renal cancer Stable 9 mm hypoattenuating lesion of lower pole of right kidney, not significa ntly changed since 06/12/2020 Chronic pancreatitis Diverticulosis of left colon; no CT evidence of diverticulitis Normal appendix Aortobiiliac stent
[2022-03-22 09:03] LABS: Estimated Glomerular Filt Rate > 60
== END 2022-03-22 08:34 | disposition home or self-care (01) ==
LOC: CHSIMG 08:35
PROVIDERS: PCP Family Medicine; Visit Provider Family Medicine
DX: N28.89 Other specified disorders of kidney and ureter (principal)
CPT/HCPCS: 74177; Q9967

== ENCOUNTER 2022-04-11 12:55 | Outpatient (CLI) | payer MEDICARE, SELFPAY ==
--- NOTE | ~2022-04-11 | XR_ITS ---
EXAMINATION: XR chest 2V DATE: 04/11/2022 13:20 INDICATION: Shortness of breath. TECHNIQUE: Frontal and lateral views of the chest were obtained. COMPARISON: Chest 2 views 05/05/2020, CT abdomen and pelvis 03/22/2022 FINDINGS: The chest demonstrates clear lungs without pneumonia, pleural effusion, or pneumothorax. Th e heart size is normal. There are changes of anterior fusion procedure in cervical spine. IMPRESSION: 1. No acute cardiopulmonary disease. Reviewed, dictated and finalized at location B.
[2022-04-11 14:00] LABS: SARS-CoV-2 RNA PCR Negative (Negative)
[2022-04-11 14:59] LABS: Influenza A QL RT-PCR Negative (Negative); Influenza B QL RT-PCR Negative (Negative)
== END 2022-04-11 12:56 | disposition home or self-care (01) ==
LOC: CHSLAB 12:58
PROVIDERS: PCP Family Medicine; Visit Provider Family Medicine
DX: R06.00 Dyspnea, unspecified (principal); Z20.822 Contact with and (suspected) exposure to COVID-19
CPT/HCPCS: 71046; 87502; C9803; U0003; U0005

== ENCOUNTER 2023-04-18 13:41 | Outpatient (CLI) | payer MEDICARE, SELFPAY ==
[2023-04-18 14:06] LABS: Basophils Absolute Auto 0.02 K/mm3 (0.00-0.10); Basophils Percent Auto 0.4 % (0.0-1.0); Eosinophils Percent Auto 2.1 % (1.0-6.0); Immature Granulocyte Absolute 0.02 K/mm3 (0.00-0.00); Immature Granulocyte Percent A 0.4 % (0.0-0.0); Lymphocytes Absolute Auto 1.03 K/mm3 (1.10-4.50); Lymphocytes Percent Auto 21.9 % (18.0-42.0); Mean Corpuscular HGB Conc 35.1 g/dL (32.0-36.0); Mean Corpuscular Hemoglobin 33.2 pg (27.0-31.0); Mean Corpuscular Volume 94.6 fL (78.0-102.0); Mean Platelet Volume 8.7 fl (8.7-11.0); Monocytes Absolute Auto 0.46 K/mm3 (0.10-0.90); Monocytes Percent Auto 9.8 % (2.0-11.0); Neutrophils Absolute Auto 3.1 K/mm3 (1.7-7.2); Neutrophils Percent Auto 65.4 % (50.0-70.0); Platelet Count Result 231 K/mm3 (150-420); Red Blood Count 3.91 M/mm3 (4.70-6.10); Red Cell Distribution Width 14.7 % (11.6-14.4); White Blood Count 4.7 K/mm3 (4.8-10.8)
[2023-04-18 14:37] LABS: Alanine Aminotransferase 78 U/L (16-63); Albumin Level 3.7 g/dL (3.4-5.0); Alkaline Phosphatase 171 U/L (46-116); Anion Gap 12 mmol/L (8-16); Aspartate Amino Transferase 81 U/L (15-37); Bilirubin,Total 0.9 mg/dL (0.00-1.00); Blood Urea Nitrogen 22 mg/dL (7-18); Calcium 8.4 mg/dL (8.5-10.1); Carbon Dioxide 25 mmol/L (21-32); Chloride 98 mmol/L (98-108); Creatine Kinase 140 U/L (39-308); Estimated Glomerular Filt Rate 47; Glucose 111 mg/dL (70-99); Osmolality Calculated 284 mOsm/kg (285-295); Potassium 4.4 mmol/L (3.5-5.1); Sodium 135 mmol/L (136-145); Thyroid Stimulating Hormone 0.93 uIU/mL (0.36-3.74); Total Protein 6.8 g/dL (6.4-8.2); Troponin I 7.8 ng/L (0.00-60.4)
== END 2023-04-18 13:42 | disposition home or self-care (01) ==
LOC: CHSLAB 13:52
PROVIDERS: PCP Family Medicine; Visit Provider Family Medicine
DX: I10 Essential (primary) hypertension (principal); R53.83 Other fatigue
CPT/HCPCS: 36415; 80053; 82550; 82553; 84443; 84484; 85025

== ENCOUNTER 2024-08-17 10:08 | Outpatient (CLI) | payer MEDICARE, SELFPAY ==
--- NOTE | ~2024-08-17 | XR_ITS ---
XR cervical spine 4-5V Ordering provider: Ry Ansari MD History: . PAIN,NKI,FX WITH SURG X7YR AGO-LT ARM DEFICIT . Comparison: None. FINDINGS: VERTEBRAL BODIES: Postoperative changes at the level of C5, C6 and C7. Otherwise, Normal height and a lignment. No visible fracture or subluxation. The dens is intact. DISK SPACES: Narrowing of the disc C4-C5. Disc spacers at the level of C5-C6 and C6-C7. Bilateral alice rowing of the foramina in the lower cervical area but this can be partly due to improper positioning. . Multilevel uncovertebral joint osteoarthritic changes. PARASPINOUS SOFT TISSUES: No prevertebral soft tissue swelling. IMPRESSION: No acute osseous abnormality cervical spine. Postoperative changes. Reviewed, dictated and finalized at location A.
== END 2024-08-17 10:09 | disposition home or self-care (01) ==
LOC: CHSIMG 10:11
PROVIDERS: PCP Family Medicine; Visit Provider Family Medicine
DX: M54.2 Cervicalgia (principal); Z98.890 Other specified postprocedural states
CPT/HCPCS: 72050

== ENCOUNTER 2024-08-28 10:07 | Outpatient (CLI) | payer MEDICARE, SELFPAY ==
--- NOTE | ~2024-08-28 | CT_ITS ---
CT Scan of the Chest without Contrast: Clinical Indication: Lung cancer screening, nicotine dependence Technique: Contiguous sections were acquired throughout the chest without intravenous contrast. Dose reduction technique was used on this scan by utilizing automated exposure control and iterative recon struction technique. The dose-length product (DLP) was 71.70 mGy-cm. Findings: There is no evidence of any significant mediastinal, hilar or axillary lymphadenopathy. Extensive ath erosclerotic calcifications of the vascular structures are noted. There is no evidence of pleural or pericardial effusion. There is a 7.0 x 5.5 cm mass in the medial right lower lobe. There is linear scarring at the lung bas es bilaterally. Images through the upper abdomen reveal no abnormalities. Impression: Lung RADS 4B: Very suspicious. 7.0 x 5.5 cm right lower lobe mass, highly suspicious for bronchogenic carcinoma. Tissue sampling recommended to establish histologic diagnosis. Case discussed with Dr. Ansari at the time of reading. Reviewed, dictated and finalized at location . Impression: Lung RADS 4B: Very suspicious. 7.0 x 5.5 cm right lower lobe mass, highly suspi cious for bronchogenic carcinoma. Tissue sampling recommended to establish hist ologic diagnosis. Case discussed with Dr. Ansari at the time of reading.
== END 2024-08-28 10:08 | disposition home or self-care (01) ==
LOC: CHSIMG 10:10
PROVIDERS: PCP Family Medicine; Visit Provider Family Medicine
DX: Z12.2 Encounter for screening for malignant neoplasm of respiratory organs (principal); Z87.891 Personal history of nicotine dependence; R91.8 Other nonspecific abnormal finding of lung field
CPT/HCPCS: 71271

== ENCOUNTER 2024-08-29 08:12 | Outpatient (CLI) | payer MEDICARE, SELFPAY ==
--- NOTE | ~2024-08-29 | MR_ITS ---
EXAMINATION: MR cervical spine wo/w con DATE: 08/29/2024 09:45 INDICATION: Cervical radiculopathy. Neck pain. TECHNIQUE: Magnetic resonance imaging (MRI) of the cervical spine was performed without and with 10 m L MultiHance intravenous contrast. COMPARISON: Cervical spine radiographs 08/17/24 FINDINGS: Motion artifact is noted. Alignment is normal. There are changes of anterior fusion procedu re from C5 to C7 with interbody bone graft and anterior plate and screws. There is moderately decreas ed disc height at C4-C5. There is thinning of the spinal cord at C6-C7, but motion artifact decreases sensitivity and specificity for abnormal cord signal. The following disc levels are specifically dis cussed: C2-C3: The disc does not extend beyond the endplate margin. There is mild bilateral uncovertebral luca nt osteoarthritis. There is mild right and severe left facet joint osteoarthritis. There is mild righ t and moderate left neural foraminal stenosis. There is no central canal stenosis. C3-C4: The disc is bulging. There is moderate right and severe left uncovertebral joint osteoarthriti s. There is moderate bilateral facet joint osteoarthritis. There is mild right and moderate left neur al foraminal stenosis. There is mild central canal stenosis. C4-C5: The disc is bulging. There is severe bilateral uncovertebral joint osteoarthritis. There is se yasmine right and moderate left facet joint osteoarthritis. There is hypertrophy of the ligamentum flavu m. There is moderate bilateral neural foraminal stenosis. There is moderate central canal stenosis wi th ventral and dorsal indentation of the spinal cord. C5-C6: There is mild bilateral uncovertebral joint hypertrophy. There is mild bilateral facet joint o steoarthritis. There is mild bilateral neural foraminal stenosis. There is no central canal stenosis. C6-C7: There is moderate right and severe left uncovertebral joint hypertrophy. There is mild bilater al facet joint osteoarthritis. There is mild bilateral neural foraminal stenosis. There is mild centr al canal stenosis. C7-T1: There is a right foraminal protrusion. There is no uncovertebral joint osteoarthritis. There i s severe bilateral facet joint osteoarthritis. There is mild bilateral neural foraminal stenosis. The re is no central canal stenosis. IMPRESSION: 1. Moderate cervical spondylosis. 2. Myelomalacia at C6-C7. 3. Anterior fusion procedure from C5 to C7. Reviewed, dictated and finalized at location A.
== END 2024-08-29 08:13 | disposition home or self-care (01) ==
LOC: CHSIMG 08:13
PROVIDERS: PCP Family Medicine; Visit Provider Family Medicine
DX: M54.12 Radiculopathy, cervical region (principal); M43.02 Spondylolysis, cervical region; G95.89 Other specified diseases of spinal cord; Z98.1 Arthrodesis status
CPT/HCPCS: 72156; A9577